=== PATIENT | male | born 1945 | race Caucasian/White ===

== ENCOUNTER 2021-07-04 08:34 | Inpatient (IN) ==
--- NOTE | 2021-07-04 08:44 | DR.EXTPAIN ---
HPI Time seen Time Seen by Provider: 07/04/21 08:45 PCP Primary Care Physician: No local Complaint/Symptoms Chief Complaint Doctor Comments: 75 y/o male brought in via EMS after suffering a fall this am. Pt falls frequently, loses his balance. C/o pain of R shoulder, R ribs. Pt seen here recently for several falls over the past few weeks. Has multiple rib fractures recently. Pt with a h/o dementia, is a poor historian. Cannot describe the pain. Indicates R upper arm, right chest wall. Denies heada injury, neck pain or LOC. Denies recent illness, no fever, cough, N/V, bowel or bladder issues (but again, not a good historian). Brother arrived - he has been caring for the pt over the past several years. Feels he cannot do it anymore. Pt does not live with him, brother checks on him several times a day. States pt not eating, getting weaker. [facility] about [facility]. Gets a home health nurse to visit, about 8 hours per week. Brother feels pt needs to be in a halfway. Has no other family members to help care for the pt. Has had a recent UTI, still on antibiotic. Chief Complaint:: Pt c/o right shoulder pain and right rib pain s/p fall this am. Pt has had multiple falls recently. COVID-19 Coronavirus risk:travel/contact w/high risk person: No Has patient experienced Coronavirus symptoms: No Nurses notes reviewed Nurses Notes Review: Yes Source History Provided: EMS Mode of arrival Mode of Arrival: Stretcher Timing Onset of Chief Complaint: 07/04/21 PMH PMH Past Medical History: Yes Past Medical History: Coronary Artery Disease, CVA, Dementia, Diabetes and MT Past Surgical History: Yes Surgical History: Angioplasty/Stents Family History History of Family Medical Conditions: Yes Family Medical History: Diabetes Mellitus, MT and Hypertension Social History Do you use any recreational Drugs:: No Travel Risk Coronavirus risk:travel/contact w/high risk person: No Has patient experienced Coronavirus symptoms: No Infectious screening In the last 2 months have you had wt loss of >10#?: NO Have you had fever, night sweats or hemotysis?: No Have you traveled outside the country in the last 6 months?: No Isolation: Standard ROS Review of Systems Constitutional: Weakness Eyes: No Symptoms Reported ENTM: No Symptoms Reported Respiratoy: No Symptoms Reported Cardiovascular: Chest Pain Gastrointestinal/Abdominal: No Symptoms Reported Genitourinary: No Symptoms Reported Neurological: Weakness Musculoskeletal: Right, Shoulder and Arm Integumentary: No Symptoms Reported Hematologic/Lymphatic: No Symptoms Reported Psychiatric: No Symptoms Reported All Other Systems: Reviewed and Negative PE Vital Signs Vitals: Temperature 97.9 F Pulse Rate 81 Respiratory Rate 18 Blood Pressure [Left Arm] 118/78 Blood Pressure 157/94 O2 Sat by Pulse Oximetry 96 General Limitations: Altered Mental Status General Appearance: Alert and In No Apparent Distress Head Head Exam: Normal Inspection, Atraumatic and Normocephalic Eyes Eye exam: Normal Appearance, PERRL and EOMI ENT ENT Exam: Normal Exam Neck Neck Exam: Normal Inspection and Full ROM; negative Tenderness Chest Chest Inspection: Tenderness (right side , no crepitus) Respiratory Respiratory Exam: Normal Lung Sounds Bilat; negative Accessory Muscle Use and Respiratory Distress Respiratory Exam: Bilateral: Clear to Auscultation Cardiovascular Cardiovascular Exam: Regular Rate, Normal Rhythm and Normal Heart Sounds Abdominal Exam Abdominal Exam: Normal Inspection, Normal Bowel Sounds and Soft; negative Tenderness Extremities Extremities Exam: Normal Inspection and Tenderness (R upper arm tenderness, no crepitus) Neurological Neurological Exam: Alert and CN II-XII Intact; negative Motor Sensory Deficit Psychiatric Psychiatric Exam: Normal Affect Skin Skin Exam: Warm and Dry MDM Differential Diagnosis Differential Diagnosis: Contusion, Fracture and Other (dehydration, electrolyte abnormalities) COURSE Treatment Treatment: 75 y/o male with dementia, falling frequently. Has not been eating, getting weaker. 1015 - remains stable, in no distress. X-rays unremarkable for acute injuries. Labs overall about the same, except fo an elevated troponin leve l. No report of chest pain. Discussed with covering hospitalist, Dr Contreras. He will accept the pt for admisison, will hydrate the patient, follow his troponin level, and attempt to help with NH placement. ROR Labs Reviewed Laboratory Results Reviewed?: Yes Result Diagrams: 07/04/21 09:17 07/04/21 09:17 Laboratory: WBC 9.4 X10^3/uL (3.6-10.0) 07/04/21 09:17 RBC 4.72 X10^6/uL (4.7-6.0) 07/04/21 09:17 Hgb 13.8 g/dL (13.5-18.0) 07/04/21 09:17 Hct 41.2 % (42.0-54.0) L 07/04/21 09:17 MCV 87.4 fL (80.0-100.0) 07/04/21 09:17 MCH 29.2 pg (27.0-34.0) 07/04/21 09:17 MCHC 33.4 g/dL (33.0-35.0) 07/04/21 09:17 RDW 13.8 % (11.6-16.5) 07/04/21 09:17 Plt Count 289 X10^3/uL (150.0-450.0) 07/04/21 09:17 MPV 9.3 fL (7.4-11.0) 07/04/21 09:17 Neut % (Auto) 73.5 % (42.0-75.0) 07/04/21 09:17 Lymph % (Auto) 14.8 % (21.0-51.0) L 07/04/21 09:17 [place] % (Auto) 10.4 % (0.0-13.0) 07/04/21 09:17 Eos % (Auto) 0.4 % (0.9-2.9) L 07/04/21 09:17 Baso % (Auto) 0.9 % (0.2-1.0) 07/04/21 09:17 Neut # (Auto) 6.9 x10^3/uL (2.2-4.8) H 07/04/21 09:17 Lymph # (Auto) 1.4 X10^3/uL (1.3-2.9) 07/04/21 09:17 [place] # (Auto) 1.0 x10^3/uL (0.3-0.8) H 07/04/21 09:17 Eos # (Auto) 0.0 x10^3/uL (0.0-0.2) 07/04/21 09:17 Baso # (Auto) 0.1 X10^3/uL (0.0-0.1) 07/04/21 09:17 Absolute Nucleated RBC 0.0 /100WBC 07/04/21 09:17 Sodium 139 mmol/L (136-145) 07/04/21 09:17 Corrected Sodium 140 mmol/L (136-145) 07/04/21 09:17 Potassium 4.1 mmol/L (3.5-5.1) 07/04/21 09:17 Chloride 102 mmol/L (98-107) 07/04/21 09:17 Carbon Dioxide 27.3 mmol/L (21-32) 07/04/21 09:17 BUN 31 mg/dL (7-18) H 07/04/21 09:17 Creatinine 1.58 mg/dL (0.70-1.30) H 07/04/21 09:17 Est GFR (MDRD) Af Amer 55 (>60) L 07/04/21 09:17 Est GFR (MDRD) Non-Af 46 (>60) L 07/04/21 09:17 Glucose 140 mg/dL (65-99) H 07/04/21 09:17 Calcium 8.5 mg/dL (8.5-10.1) 07/04/21 09:17 Corrected Calcium 9.4 mg/dL (8.5-10.1) 07/04/21 09:17 Total Bilirubin 1.20 mg/dL (0.2-1.0) H 07/04/21 09:17 AST 20 Units/L (15-37) 07/04/21 09:17 ALT 23 Units/L (12-78) 07/04/21 09:17 Alkaline Phosphatase 144 Units/L (46-116) H 07/04/21 09:17 Creatine Kinase 48 Units/L (39-308) 07/04/21 09:17 CK-MB (CK-2) 2.1 ng/mL (0-4.0) 07/04/21 09:17 CK/CKMB % Calc 4.4 % (<4) 07/04/21 09:17 Troponin I High Sens 186.8 ng/L (4.0-60.0) H* 07/04/21 09:17 Total Protein 6.3 g/dL (6.4-8.2) L 07/04/21 09:17 Albumin 2.9 g/dL (3.4-5.0) L 07/04/21 09:17 Globulin 3.4 g/dL (2.5-4.5) 07/04/21 09:17 Albumin/Globulin Ratio 0.9 Ratio (1.1-2.1) L 07/04/21 09:17 Lipase 81 Units/L (73-393) 07/04/21 09:17 Other Results Comments: elevated troponin Opioid Opioid Risk Tool Age ([place] if 16-45): No History of Preadolescent Sexual Abuse: No Total: 0 Total Score Risk Category: Low Risk Copyright: Cricket CORDOBA predicting aberrant behaviors Diagnosis Discharge Problem: Weakness generalized, Dehydration Failure to thrive Qualifiers: Failure to thrive age range: in adult Qualified Code(s): R62.7 - Adult failure to thrive
[2021-07-04] MEDS ORDERED: NS 500 ML IV 500 ML IV ONE ×2 (09:03→09:44)
--- NOTE | 2021-07-04 09:04 | RAD ---
HISTORYFall, right humerus painSTUDYRight humerus two viewsCOMPARISONNoneFINDINGSThere is no evidence for fracture, lytic, or blastic lesion. No abnormal periosteal reaction or soft tissue abnormality is identified. There is some calcification in the area the biceps tendon groove. This can be seen in calcific tendinitis or calcific bursitis in the appropriate clinical setting.IMPRESSIONNo acute traumatic abnormalityPeritendinous calcification in the area the biceps tendon which can be seen in calcific tendinitis and calcific bursitis in the appropriate clinical settingElectronically signed by: MARKIE ZAFAR (Jul 04, 2021 09:03:15)
--- NOTE | 2021-07-04 09:04 | RAD ---
HISTORYFall, right-sided painSTUDYChest MBOIENQILHOY83/07/2022FINDINGSThe heart is within normal limits in size. The ashley are normal. Lung fritz are clear. No pleural effusion or pneumothorax is identified. Bony thorax is unremarkable.IMPRESSIONNo significant abnormality identifiedElectronically signed by: MARKIE ZAFAR (Jul 04, 2021 09:04:14)
[2021-07-04 09:25] LABS: BASOPHILS # (AUTO) 0.1 X10^3/uL (0.0-0.1); BASOPHILS % (AUTO) 0.9 % (0.2-1.0); EOSINOPHILS % (AUTO) 0.4 % (0.9-2.9); HEMATOCRIT 41.2 % (42.0-54.0); HEMOGLOBIN 13.8 g/dL (13.5-18.0); LYMPHOCYTES # (AUTO) 1.4 X10^3/uL (1.3-2.9); LYMPHOCYTES % (AUTO) 14.8 % (21.0-51.0); MEAN CORPUSCULAR HEMOGLOBIN 29.2 pg (27.0-34.0); MEAN CORPUSCULAR HGB CONC 33.4 g/dL (33.0-35.0); MEAN CORPUSCULAR VOLUME 87.4 fL (80.0-100.0); MEAN PLATELET VOLUME 9.3 fL (7.4-11.0); MONOCYTES % (AUTO) 10.4 % (0.0-13.0); NEUTROPHILS # (AUTO) 6.9 x10^3/uL (2.2-4.8); NEUTROPHILS % (AUTO) 73.5 % (42.0-75.0); RED BLOOD COUNT 4.72 X10^6/uL (4.7-6.0); RED CELL DISTRIBUTION WIDTH 13.8 % (11.6-16.5); WHITE BLOOD COUNT 9.4 X10^3/uL (3.6-10.0)
[2021-07-04 09:51] LABS: ALBUMIN 2.9 g/dL (3.4-5.0); CALCIUM 8.5 mg/dL (8.5-10.1); CARBON DIOXIDE 27.3 mmol/L (21-32); CKMB % 4.4 % (<4); COR CA(FOR HYPOALB) 9.4 mg/dL (8.5-10.1); CREATINE KINASE MB 2.1 ng/mL (0-4.0); CREATININE 1.58 mg/dL (0.70-1.30); TOTAL PROTEIN 6.3 g/dL (6.4-8.2)
[2021-07-04 13:35] LABS: CKMB % 4.4 % (<4); CREATINE KINASE MB 2.3 ng/mL (0-4.0)
[2021-07-04] MEDS: NS 1,000 ML IV 1,000 ML IV SCH (14:17)
[2021-07-04 19:21] LABS: CKMB % 5.5 % (<4); CREATINE KINASE MB 2.3 ng/mL (0-4.0)
[2021-07-05] MEDS: NS 1,000 ML IV 1,000 ML IV SCH ×2 (02:00→16:16)
[2021-07-05 02:03] LABS: CKMB % 8.1 % (<4); CREATINE KINASE MB 2.6 ng/mL (0-4.0)
[2021-07-05 06:25] LABS: BASOPHILS % (AUTO) 0.6 % (0.2-1.0); EOSINOPHILS % (AUTO) 0.4 % (0.9-2.9); HEMATOCRIT 36.5 % (42.0-54.0); HEMOGLOBIN 12.4 g/dL (13.5-18.0); LYMPHOCYTES # (AUTO) 1.6 X10^3/uL (1.3-2.9); LYMPHOCYTES % (AUTO) 21.6 % (21.0-51.0); MEAN CORPUSCULAR HEMOGLOBIN 29.5 pg (27.0-34.0); MEAN CORPUSCULAR HGB CONC 33.8 g/dL (33.0-35.0); MEAN CORPUSCULAR VOLUME 87.2 fL (80.0-100.0); MEAN PLATELET VOLUME 10.3 fL (7.4-11.0); MONOCYTES # (AUTO) 0.8 x10^3/uL (0.3-0.8); MONOCYTES % (AUTO) 11.5 % (0.0-13.0); NEUTROPHILS # (AUTO) 4.7 x10^3/uL (2.2-4.8); NEUTROPHILS % (AUTO) 65.9 % (42.0-75.0); RED BLOOD COUNT 4.19 X10^6/uL (4.7-6.0); RED CELL DISTRIBUTION WIDTH 14.3 % (11.6-16.5); WHITE BLOOD COUNT 7.2 X10^3/uL (3.6-10.0)
[2021-07-05 06:42] LABS: ALANINE AMINOTRANSFERASE 26 Units/L (12-78); ALBUMIN 2.4 g/dL (3.4-5.0); ALKALINE PHOSPHATASE 128 Units/L (46-116); ASPARTATE AMINO TRANSFERASE 20 Units/L (15-37); BLOOD UREA NITROGEN 26 mg/dL (7-18); CALCIUM 7.6 mg/dL (8.5-10.1); CARBON DIOXIDE 27.1 mmol/L (21-32); CHLORIDE 103 mmol/L (98-107); COR CA(FOR HYPOALB) 8.9 mg/dL (8.5-10.1); COR NA(FOR HYPERGLY) 135 mmol/L (136-145); CREATININE 1.11 mg/dL (0.70-1.30); SODIUM 135 mmol/L (136-145); TOTAL PROTEIN 5.4 g/dL (6.4-8.2); eGFR NON BLACK RACES > 60 (>60)
[2021-07-05] MEDS ORDERED: NovoLIN R (or HumuLIN R) SUBCUT PRN (09:43)
[2021-07-05] MEDS ORDERED: ALBUMIN HUMAN 25%- 100 ML 100 ML IV SCH (10:00)
[2021-07-05] MEDS: PriLOSEC PO SCH ×2 (10:02→20:39)
[2021-07-05] MEDS: MEGACE PO SCH ×2 (10:02→20:39)
[2021-07-05] MEDS: TAB-A-VITE PO SCH (10:03)
[2021-07-05] MEDS: K-DUR TAB 20 MEQ PO SCH (10:03)
[2021-07-05] MEDS: CELEXA PO SCH (10:03)
[2021-07-05] MEDS: NAMENDA TAB 10 MG PO SCH (10:03)
--- NOTE | 2021-07-05 10:17 | DR.H&P ---
H&P - History & Physical for Day of: H&P Date: 07/04/21 - Chief Complaint Chief Complaint: FALLS, RIGHT SHOULDER, ARM, AND RIB PAIN, WEAKNESS, DECREASED ORAL INTAKE - History of Present Illness History of Present Illness: IS A 75 YEAR OLD WHITE MALE. HE IS A PATIENT OF THE [place] [facility]. HE PRESENTED TO THE ER VIA EMS FOLLOWING A FALL AT HOME. PATIENT COMPLAINS OF PAIN TO THE RIGHT SHOULDER, RIGHT ARM, AND RIGHT SIDE RIBS. PATIENT HAS HAD RECENT RIB FRACTURES. PATIENT HAS A HISTORY OF DEMENTIA AND IS A POOR HISTORIAN. PATIENTS BROTHER REPORTS THAT PATIENT LIVES AT HOME ALONE IN A SMALL [place] AND HAS HAD SEVERAL FALLS OVER THE PAST FEW WEEKS. PATIENT/FAMILY DENIES RECENT ILLNESS, FEVER, COUGH, N/V, BOWEL/BLADDER ISSUES. HE HAS HAD DECREASED ORAL INTAKE. PATIENTS BROTHER REPORTS THAT HE CHECKS ON PATIENT MULTIPLE TIMES A DAY, BUT DUE TO PATIENTS INCREASED WEAKNESS AND FALLS, BROTHER FEELS THAT PATIENT IS UNSAFE AT HOME AND FEELS THAT IT IS TIME FOR SNF PLACEMENT. PATIENT HAS NO OTHER FAMILY MEMBERS TO HELP CARE FOR HIM. HIS PMH INCLUDES CAD, CVA, DEMENTIA, DM II, ME, CARDIAC STENTS. ON ARRIVAL TO THE ER, VITALS WERE 97.9-81-20-99%-157/94. LABS WERE OBTAINED. WBC 9.4, HGB 13.8, HCT 41.2, SODIUM 139, POTASSIUM 4.1, BUN 31, CREATININE 1.58, GLUCOSE 140, TOTAL BILI 1.20, ALK PHOS 144, TROPONIN 186.8, TOTAL PROTEIN 6.3, ALBUMIN 2.9. A CHEST XRAY WAS OBTAINED AND REVEALED: NO SIGNIFICANT ABNORMALITY IDENTIFIED. RIGHT HUMERUS XRAY REVEALED: No acute traumatic abnormality. Peritendinous calcification in the area the biceps tendon which can be seen in calcific tendinitis and calcific bursitis in the appropriate clinical setting. EKG REVEALED: SINUS RHYTHM WITH HR 82. CHEST CT OBTAINED ON 06/13/21 REVEALED: 1. Acute or subacute ununited nondisplaced fractures of the right lateral second rib, right posterior fifth rib and right anterior lateral seventh eighth, ninth, and 10th ribs. 2. 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 3. Diffuse osteopenia. 4. Otherwise unremarkable chest CT without contrast. IN THE ER, HE WAS GIVEN A NORMAL SALINE BOLUS. HE WAS ADMITTED TO THE HOSPITAL FOR FURTHER EVALUATION AND TREATMENT OF DEHYDRATION, PROTEIN- CALORIE MALNUTRITION, GENERALIZED WEAKNESS, FREQUENT FALLS, FAILURE TO THRIVE. HE WAS STARTED ON NORMAL SALINE AT 80 ML/HR, ALBUMIN 25% IV DAILY, MEGACE 40MG PO BID, OTBS ACHS, HUMULIN R SSI. HIS HOME MEDICATIONS OF CELEXA, PLAVIX, ARICEPT, NAMENDA, MULTIVITAMINS, PRILOSEC, AND K-DUR WERE ALSO RESUMED. WE WILL HAVE PHYSICAL THERAPY EVALUATE PATIENT. OTHERWISE, WE PLAN TO FOLLOW UP WITH AM LABS AND CONTINUE TO MONITOR. TIME SPENT ON CLINICAL ASSESSMENT, REVIEWING LABS AND IMAGING, DECISION MAKING, AND DOCUMENTATION GREATER THAN 75 MINUTES. - Past Medical History Past Medical History: ME, Coronary Artery Disease, Diabetes, Dementia, CVA - Past Surgical History Surgical History: Angioplasty/Stents - Family History Family Medical History: Diabetes Mellitus, ME, Hypertension - Social History Does any household member use tobacco: No Alcohol Use: None Drug Use: None - Medications Home Medications: No Known Drug Allergies Allergy (Verified 07/04/21 09:06) CONTINUE taking the following medications citalopram 20 mg PO ONCE 07/04/21 [History] clopidogrel [Plavix] 75 mg PO ONCE 07/04/21 [History] cyanocobalamin (vitamin B-12) [Vitamin B-12] 1,000 mcg PO ONCE 07/04/21 [History] donepezil 10 mg PO QHS 07/04/21 [History] doxycycline hyclate 100 mg PO BID 07/04/21 [History] memantine 5 mg PO QAM 07/04/21 [History] metformin 500 mg PO DAILY 07/04/21 [History] omeprazole 20 mg PO BID 07/04/21 [History] potassium chloride 20 meq PO DAILY 07/04/21 [History] vitamin B comp and C no.3 1 cap PO ONCE 07/04/21 [History] - Review of Systems Constitutional: Weakness, Malaise Eyes: No Symptoms Reported ENT: No Symptoms Reported Respiratory: No Symptoms Reported Cardiovascular: No Symptoms Reported Gastrointestinal: No Symptoms Reported Genitourinary: No Symptoms Reported Musculoskeletal: See HPI, Shoulder Pain, Arm Pain Skin: Bruising Neurological: See HPI, Weakness, Confusion - Physical Exam Vital Signs: Temperature 98.2 F Pulse Rate [Left Radial] 77 Pulse Rate 81 Respiratory Rate 18 Blood Pressure [Left Arm] 131/90 Blood Pressure 157/94 O2 Sat by Pulse Oximetry 98 Oriented: Person, Place Eyes: Normal Ear: Normal Nose: Normal Throat: Normal Respiratory: Diminished Throughout Cardiovascular: Normal : Normal Auscultation: Bowel Sounds: Normal Palpation: Normal Tenderness: Normal Skin: Decreased Turgur, Bruising Musculoskeletal: Right, Shoulder, Arm, Tender Psychiatric: Normal Mood Description: Calm Affect: Normal Speech Pattern: Clear - Assessment/Plan (1) Dehydration Status: Acute Plan: ADMIT, NORMAL SALINE AT 80 ML/HR, ALBUMIN 25% IV DAILY, MEGACE 40MG PO BID, OTBS ACHS, HUMULIN R SSI. RESUME HOME MEDS (2) Protein calorie malnutrition Qualifiers: Protein-calorie malnutrition severity: moderate Qualified Code(s): E44.0 - Moderate protein-calorie malnutrition Status: Acute (3) Weakness generalized Status: Acute (4) Frequent falls Status: Acute Plan: PT/OT (5) Failure to thrive Qualifiers: Failure to thrive age range: in adult Qualified Code(s): R62.7 - Adult failure to thrive Status: Acute (6) Diabetes mellitus Qualifiers: Diabetes mellitus type: type 2 Diabetes mellitus intermediate insulin use: with intermediate use Diabetes mellitus complication status: with hyperglycemia Qualified Code(s): E11.65 - Type 2 diabetes mellitus with hyperglycemia; Z79.4 - residential (current) use of insulin Status: Chronic (7) CAD (coronary artery disease) Qualifiers: Coronary Disease-Associated Artery/Lesion type: [place] artery [place] vs. transplanted heart: [place] heart Associated angina: unspecified whether angina present Qualified Code(s): I25.10 - Atherosclerotic heart disease of [place] coronary artery without angina pectoris Status: Chronic - Allergies Allergies/Adverse Reactions: Allergies Allergy/AdvReac Type Severity Reaction Status Date / Time No Known Drug Allergies Allergy Verified 07/04/21 09:06
[2021-07-05] MEDS: PLAVIX PO SCH (10:40)
[2021-07-05] MEDS ORDERED: ULTRAM PO PRN (11:52)
[2021-07-05] MEDS: MILK OF MAGNESIA PO SCH ×2 (13:39→20:38)
[2021-07-05 14:11] VITALS: BMI 23.5
[2021-07-05] MEDS: ARICEPT TAB 10 MG PO SCH (20:38)
[2021-07-05] MEDS: SNACK - Diabetic Appropriate PO SCH (20:39)
[2021-07-05] MEDS: COLACE CAP 100 MG PO SCH (20:39)
[2021-07-06] MEDS: NS 1,000 ML IV 1,000 ML IV SCH ×2 (04:30→16:53)
[2021-07-06 05:34] LABS: BASOPHILS # (AUTO) 0.1 X10^3/uL (0.0-0.1); BASOPHILS % (AUTO) 1.4 % (0.2-1.0); EOSINOPHILS # (AUTO) 0.1 x10^3/uL (0.0-0.2); HEMATOCRIT 32.6 % (42.0-54.0); HEMOGLOBIN 11.2 g/dL (13.5-18.0); LYMPHOCYTES # (AUTO) 1.8 X10^3/uL (1.3-2.9); LYMPHOCYTES % (AUTO) 19.7 % (21.0-51.0); MEAN CORPUSCULAR HGB CONC 34.3 g/dL (33.0-35.0); MEAN CORPUSCULAR VOLUME 87.5 fL (80.0-100.0); MEAN PLATELET VOLUME 9.5 fL (7.4-11.0); MONOCYTES % (AUTO) 11.1 % (0.0-13.0); NEUTROPHILS # (AUTO) 6.2 x10^3/uL (2.2-4.8); NEUTROPHILS % (AUTO) 66.8 % (42.0-75.0); RED BLOOD COUNT 3.73 X10^6/uL (4.7-6.0); RED CELL DISTRIBUTION WIDTH 14.1 % (11.6-16.5); WHITE BLOOD COUNT 9.3 X10^3/uL (3.6-10.0)
[2021-07-06 05:45] LABS: ALANINE AMINOTRANSFERASE 19 Units/L (12-78); ALBUMIN 2.5 g/dL (3.4-5.0); ALKALINE PHOSPHATASE 111 Units/L (46-116); ASPARTATE AMINO TRANSFERASE 15 Units/L (15-37); BLOOD UREA NITROGEN 18 mg/dL (7-18); CALCIUM 7.5 mg/dL (8.5-10.1); CARBON DIOXIDE 27.5 mmol/L (21-32); CHLORIDE 106 mmol/L (98-107); COR CA(FOR HYPOALB) 8.7 mg/dL (8.5-10.1); CREATININE 0.97 mg/dL (0.70-1.30); SODIUM 138 mmol/L (136-145); TOTAL PROTEIN 4.9 g/dL (6.4-8.2); eGFR NON BLACK RACES > 60 (>60)
[2021-07-06] MEDS ORDERED: CLINIMIX 4.25%-5% 1,000 ML with MVI INJ (ADULT) 10 ML IV SCH ×2 (09:00)
[2021-07-06] MEDS: K-DUR TAB 20 MEQ PO SCH (09:46)
[2021-07-06] MEDS: TAB-A-VITE PO SCH (09:47)
[2021-07-06] MEDS: MEGACE PO SCH ×2 (09:47→21:09)
[2021-07-06] MEDS: PLAVIX PO SCH (09:47)
[2021-07-06] MEDS: MILK OF MAGNESIA PO SCH ×2 (09:48→21:09)
[2021-07-06] MEDS: PriLOSEC PO SCH ×2 (09:48→21:08)
[2021-07-06] MEDS: NAMENDA TAB 10 MG PO SCH (09:48)
[2021-07-06] MEDS: CELEXA PO SCH (09:48)
[2021-07-06] MEDS ORDERED: MVI IV SCH ×2 (10:00)
[2021-07-06] MEDS ORDERED: CLINIMIX IV SCH ×2 (10:00)
--- NOTE | 2021-07-06 10:13 | PCM.PROG ---
Progress Note - Progress Note for Day of Date of Exam: 07/06/21 - Subjective Subjective: WAS ADMITTED 07/04 FOR TREATMENT OF DEHYDRATION, PROTEIN CALORIE MALNUTRITION, GENERALIZED WEAKNESS, FREQUENT FALLS, FAILURE TO THRIVE. HE CONTINUES WITH RIGHT SHOULDER PAIN AND RIGHT SIDE RIB PAIN, BUT DOES ADMIT TO SLIGHT IMPROVEMENT SINCE YESTERDAY. TODAY, HE IS ALERT AND ORIENTED, SITTING UP IN BED ON MORNING ROUNDS. PATIENT IS EATING OFF OF HIS BREAKFAST TRAY. HE CONTINUES WITH COMPLAINTS OF WEAKNESS. STAFF REPORTS THAT HE HAS BEEN CONFUSED AND DISORIENTED AT TIMES, BUT HAS HAD A PLEASANT DEMEANOR. THEY REPORT THAT HE HAS AN UNSTEADY GAIT AND REQUIRES ASSISTANCE WITH AMBULATION AND ADLs. ON EXAMINATION, HEART IS REGULAR IN RATE AND RHYTHM. BILATERAL LUNGS NOTED WITH DIMINISHED LUNG SOUNDS THROUGHOUT. ABDOMEN IS ROUND, SOFT, AND NON-TENDER WITH NORMAL BOWEL SOUNDS NOTED IN ALL QUADRANTS. SCATTERED BRUISING NOTED. HS VITALS THIS MORNING ARE: 98.4-75-18-98%-136/84. LABS WERE OBTAINED. ABNORMAL LAB VALUES INCLUDE THE FOLLOWING: RBC 3.73, HGB 11.2, HCT 32.6, CALCIUM 7.5, TOTAL PROTEIN 4.9, ALBUMIN 2.5. HE IS CURRENTLY RECEIVING NORMAL SALINE AT 80 ML/HR, ALBUMIN 25% IV DAILY, MEGACE 40MG PO BID, OTBS ACHS, HUMULIN R SSI. HIS HOME MEDICATIONS OF CELEXA, PLAVIX, ARICEPT, NAMENDA, MULTIVITAMINS, PRILOSEC, AND K-DUR WERE ALSO RESUMED. TODAY, WE WILL ADD TPN TO PLAN OF CARE. OTHERWISE, WE WILL FOLLOW UP WITH AM LABS AND CONTINUE TO MONITOR. PHYSICAL THERAPY WILL CONTINUE TO WORK WITH PATIENT. CASE MANAGEMENT WILL ATTEMPT TO ARRANGE PLACEMENT AT NURSING HOME CARE. TIME SPENT ON CLINICAL ASSESSMENT, REVIEWING LABS AND IMAGING, DECISION MAKING, AND DOCUMENTATION GREATER THAN 45 MINUTES. - Past Medical Family Social History Past Med/Fam/Surg Hx: No changes since H&P Allergies: Allergies No Known Drug Allergies Allergy (Verified 07/04/21 09:06) - Review of Systems ROS: No change since H&P - Vital Signs and I&O's Vital Signs: Temperature 98.4 F Pulse Rate [Left Radial] 75 Pulse Rate 81 Respiratory Rate 18 Blood Pressure [Left Arm] 136/84 Blood Pressure 157/94 O2 Sat by Pulse Oximetry 98 Intake and Output: Intake & Output 02/14/22 02/15/22 02/16/22 02/17/22 11:59 11:59 11:59 11:59 Intake Total 1562 / 1562 1280 / 1280 Output Total 800 / 800 Balance 762 / 762 1280 / 1280 - Physical Exam Oriented: Person, Place Eyes: Normal Ear: Normal Nose: Normal Throat: Normal Respiratory: Diminished Cardiovascular: Normal : Normal Auscultation: Bowel Sounds: Normal Palpation: Normal Tenderness: Normal Skin: Decreased Turgur, Bruising Musculoskeletal: Right, Shoulder, Arm, Tender Psychiatric: Normal Mood Description: Calm Affect: Normal Speech Pattern: Clear - Laboratory and Diagnostics Result Diagrams: 07/06/21 05:23 07/06/21 05:23 Labs: Laboratory WBC 9.3 X10^3/uL (3.6-10.0) 07/06/21 05:23 RBC 3.73 X10^6/uL (4.7-6.0) L 07/06/21 05:23 Hgb 11.2 g/dL (13.5-18.0) L 07/06/21 05:23 Hct 32.6 % (42.0-54.0) L 07/06/21 05:23 MCV 87.5 fL (80.0-100.0) 07/06/21 05:23 MCH 30.0 pg (27.0-34.0) 07/06/21 05:23 MCHC 34.3 g/dL (33.0-35.0) 07/06/21 05:23 RDW 14.1 % (11.6-16.5) 07/06/21 05:23 Plt Count 211 X10^3/uL (150.0-450.0) 07/06/21 05:23 MPV 9.5 fL (7.4-11.0) 07/06/21 05:23 Neut % (Auto) 66.8 % (42.0-75.0) 07/06/21 05:23 Lymph % (Auto) 19.7 % (21.0-51.0) L 07/06/21 05:23 [place] % (Auto) 11.1 % (0.0-13.0) 07/06/21 05:23 Eos % (Auto) 1.0 % (0.9-2.9) 07/06/21 05:23 Baso % (Auto) 1.4 % (0.2-1.0) H 07/06/21 05:23 Neut # (Auto) 6.2 x10^3/uL (2.2-4.8) H 07/06/21 05:23 Lymph # (Auto) 1.8 X10^3/uL (1.3-2.9) 07/06/21 05:23 [place] # (Auto) 1.0 x10^3/uL (0.3-0.8) H 07/06/21 05:23 Eos # (Auto) 0.1 x10^3/uL (0.0-0.2) 07/06/21 05:23 Baso # (Auto) 0.1 X10^3/uL (0.0-0.1) 07/06/21 05:23 Absolute Nucleated RBC 0.0 /100WBC 07/06/21 05:23 Sodium 138 mmol/L (136-145) 07/06/21 05:23 Corrected Sodium TNP 07/06/21 05:23 Potassium 4.0 mmol/L (3.5-5.1) 07/06/21 05:23 Chloride 106 mmol/L (98-107) 07/06/21 05:23 Carbon Dioxide 27.5 mmol/L (21-32) 07/06/21 05:23 BUN 18 mg/dL (7-18) 07/06/21 05:23 Creatinine 0.97 mg/dL (0.70-1.30) 07/06/21 05:23 Est GFR (MDRD) Af Amer > 60 (>60) 07/06/21 05:23 Est GFR (MDRD) Non-Af > 60 (>60) 07/06/21 05:23 Glucose 97 mg/dL (65-99) 07/06/21 05:23 POC Glucose (mg/dL) 97 mg/dL (65-99) 07/06/21 05:32 Calcium 7.5 mg/dL (8.5-10.1) L 07/06/21 05:23 Corrected Calcium 8.7 mg/dL (8.5-10.1) 07/06/21 05:23 Total Bilirubin 0.70 mg/dL (0.2-1.0) 07/06/21 05:23 AST 15 Units/L (15-37) 07/06/21 05:23 ALT 19 Units/L (12-78) 07/06/21 05:23 Alkaline Phosphatase 111 Units/L (46-116) 07/06/21 05:23 Creatine Kinase 32 Units/L (39-308) L 07/05/21 01:25 CK-MB (CK-2) 2.6 ng/mL (0-4.0) 07/05/21 01:25 CK/CKMB % Calc 8.1 % (<4) 07/05/21 01:25 Troponin I High Sens 144.1 ng/L (4.0-60.0) H* 07/05/21 01:25 Total Protein 4.9 g/dL (6.4-8.2) L 07/06/21 05:23 Albumin 2.5 g/dL (3.4-5.0) L 07/06/21 05:23 Globulin 2.4 g/dL (2.5-4.5) L 07/06/21 05:23 Albumin/Globulin Ratio 1.0 Ratio (1.1-2.1) L 07/06/21 05:23 Lipase 81 Units/L (73-393) 07/04/21 09:17 SARS-CoV-2 (PCR) Negative (NEGATIVE) 07/04/21 09:36 Influenza Type A (PCR) Negative (NEGATIVE) 07/04/21 09:36 Influenza Type B (PCR) Negative (NEGATIVE) 07/04/21 09:36 RSV (PCR) Negative (NEGATIVE) 07/04/21 09:36 - Plan (1) Dehydration Status: Acute Plan: NORMAL SALINE AT 80 ML/HR, TPN, ALBUMIN 25% IV DAILY, MEGACE 40MG PO BID, OTBS ACHS, HUMULIN R SSI. RESUME HOME MEDS (2) Protein calorie malnutrition Status: Acute Qualifiers: Protein-calorie malnutrition severity: moderate Qualified Code(s): E44.0 - Moderate protein-calorie malnutrition (3) Weakness generalized Status: Acute (4) Frequent falls Status: Acute Plan: PT/OT (5) Failure to thrive Status: Acute Qualifiers: Failure to thrive age range: in adult Qualified Code(s): R62.7 - Adult failure to thrive (6) Diabetes mellitus Status: Chronic Qualifiers: Diabetes mellitus type: type 2 Diabetes mellitus long distance billing operator insulin use: with long distance billing operator use Diabetes mellitus complication status: with hyperglycemia Qualified Code(s): E11.65 - Type 2 diabetes mellitus with hyperglycemia; Z79.4 - extermination inspector (current) use of insulin (7) CAD (coronary artery disease) Status: Chronic Qualifiers: Coronary Disease-Associated Artery/Lesion type: [place] artery [place] vs. transplanted heart: [place] heart Associated angina: unspecified whether angina present Qualified Code(s): I25.10 - Atherosclerotic heart disease of [place] coronary artery without angina pectoris
--- NOTE | 2021-07-06 10:17 | PCM.PROG ---
Progress Note - Progress Note for Day of Date of Exam: 07/05/21 - Subjective Subjective: WAS ADMITTED 07/04 FOR TREATMENT OF DEHYDRATION, PROTEIN CALORIE MALNUTRITION, GENERALIZED WEAKNESS, FREQUENT FALLS, FAILURE TO THRIVE. HE CONTINUES WITH RIGHT SHOULDER PAIN AND RIGHT SIDE RIB PAIN TODAY. HE IS ALERT AND ORIENTED, SITTING UP IN BED ON MORNING ROUNDS. HE CONTINUES WITH COMPLAINTS OF WEAKNESS. STAFF REPORTS THAT HE HAS BEEN CONFUSED AND DISORIENTED AT TIMES, BUT HAS HAD A PLEASANT DEMEANOR. THEY REPORT THAT HE HAS AN UNSTEADY GAIT AND REQUIRES ASSISTANCE WITH AMBULATION AND ADLs. ON EXAMINATION, HEART IS REGULAR IN RATE AND RHYTHM. BILATERAL LUNGS NOTED WITH DIMINISHED LUNG SOUNDS THROUGHOUT. ABDOMEN IS ROUND, SOFT, AND NON-TENDER WITH NORMAL BOWEL SOUNDS NOTED IN ALL QUADRANTS. SCATTERED BRUISING NOTED. HS VITALS THIS MORNING ARE: 97.7-76-16-97%-135/87. LABS WERE OBTAINED. ABNORMAL LAB VALUES INCLUDE THE FOLLOWING: RBC 4.19, HGB 12.4, HCT 36.5, SODIUM 135, BUN 26, GLUCOSE 113, CALCIUM 7.6, ALK PHOS 128, TOTAL PROTEIN 5.4, ALBUMIN 2.4. HE IS CURRENTLY RECEI VING NORMAL SALINE AT 80 ML/HR, ALBUMIN 25% IV DAILY, MEGACE 40MG PO BID, OTBS ACHS, HUMULIN R SSI. HIS HOME MEDICATIONS OF CELEXA, PLAVIX, ARICEPT, NAMENDA, MULTIVITAMINS, PRILOSEC, AND K-DUR WERE ALSO RESUMED. WE WILL CONTINUE WITH CURRENT PLAN OF CARE TODAY. OTHERWISE, WE WILL FOLLOW UP WITH AM LABS AND CONTINUE TO MONITOR. PHYSICAL THERAPY WILL WORK WITH PATIENT TODAY. TIME SPENT ON CLINICAL ASSESSMENT, REVIEWING LABS AND IMAGING, DECISION MAKING, AND DOCUMENTATION GREATER THAN 45 MINUTES. - Past Medical Family Social History Past Med/Fam/Surg Hx: No changes since H&P Allergies: Allergies No Known Drug Allergies Allergy (Verified 07/04/21 09:06) - Review of Systems ROS: No change since H&P - Vital Signs and I&O's Vital Signs: Temperature 98.4 F Pulse Rate [Left Radial] 75 Pulse Rate 81 Respiratory Rate 18 Blood Pressure [Left Arm] 136/84 Blood Pressure 157/94 O2 Sat by Pulse Oximetry 98 Intake and Output: Intake & Output 07/03/21 07/04/21 07/05/21 07/06/21 11:59 11:59 11:59 11:59 Intake Total 1562 / 1562 1280 / 1280 Output Total 800 / 800 Balance 762 / 762 1280 / 1280 - Physical Exam Oriented: Person, Place Eyes: Normal Ear: Normal Nose: Normal Throat: Normal Respiratory: Diminished Cardiovascular: Normal : Normal Auscultation: Bowel Sounds: Normal Palpation: Normal Tenderness: Normal Skin: Decreased [place], Bruising Musculoskeletal: Right, Shoulder, Arm, Tender Psychiatric: Normal Mood Description: Calm Affect: Normal Speech Pattern: Clear - Laboratory and Diagnostics Result Diagrams: 07/06/21 05:23 07/06/21 05:23 Labs: Laboratory WBC 9.3 X10^3/uL (3.6-10.0) 07/06/21 05:23 RBC 3.73 X10^6/uL (4.7-6.0) L 07/06/21 05:23 Hgb 11.2 g/dL (13.5-18.0) L 07/06/21 05:23 Hct 32.6 % (42.0-54.0) L 07/06/21 05:23 MCV 87.5 fL (80.0-100.0) 07/06/21 05:23 MCH 30.0 pg (27.0-34.0) 07/06/21 05:23 MCHC 34.3 g/dL (33.0-35.0) 07/06/21 05:23 RDW 14.1 % (11.6-16.5) 07/06/21 05:23 Plt Count 211 X10^3/uL (150.0-450.0) 07/06/21 05:23 MPV 9.5 fL (7.4-11.0) 07/06/21 05:23 Neut % (Auto) 66.8 % (42.0-75.0) 07/06/21 05:23 Lymph % (Auto) 19.7 % (21.0-51.0) L 07/06/21 05:23 [place] % (Auto) 11.1 % (0.0-13.0) 07/06/21 05:23 Eos % (Auto) 1.0 % (0.9-2.9) 07/06/21 05:23 Baso % (Auto) 1.4 % (0.2-1.0) H 07/06/21 05:23 Neut # (Auto) 6.2 x10^3/uL (2.2-4.8) H 07/06/21 05:23 Lymph # (Auto) 1.8 X10^3/uL (1.3-2.9) 07/06/21 05:23 [place] # (Auto) 1.0 x10^3/uL (0.3-0.8) H 07/06/21 05:23 Eos # (Auto) 0.1 x10^3/uL (0.0-0.2) 07/06/21 05:23 Baso # (Auto) 0.1 X10^3/uL (0.0-0.1) 07/06/21 05:23 Absolute Nucleated RBC 0.0 /100WBC 07/06/21 05:23 Sodium 138 mmol/L (136-145) 07/06/21 05:23 Corrected Sodium TNP 07/06/21 05:23 Potassium 4.0 mmol/L (3.5-5.1) 07/06/21 05:23 Chloride 106 mmol/L (98-107) 07/06/21 05:23 Carbon Dioxide 27.5 mmol/L (21-32) 07/06/21 05:23 BUN 18 mg/dL (7-18) 07/06/21 05:23 Creatinine 0.97 mg/dL (0.70-1.30) 07/06/21 05:23 Est GFR (MDRD) Af Amer > 60 (>60) 07/06/21 05:23 Est GFR (MDRD) Non-Af > 60 (>60) 07/06/21 05:23 Glucose 97 mg/dL (65-99) 07/06/21 05:23 POC Glucose (mg/dL) 97 mg/dL (65-99) 07/06/21 05:32 Calcium 7.5 mg/dL (8.5-10.1) L 07/06/21 05:23 Corrected Calcium 8.7 mg/dL (8.5-10.1) 07/06/21 05:23 Total Bilirubin 0.70 mg/dL (0.2-1.0) 07/06/21 05:23 AST 15 Units/L (15-37) 07/06/21 05:23 ALT 19 Units/L (12-78) 07/06/21 05:23 Alkaline Phosphatase 111 Units/L (46-116) 07/06/21 05:23 Creatine Kinase 32 Units/L (39-308) L 07/05/21 01:25 CK-MB (CK-2) 2.6 ng/mL (0-4.0) 07/05/21 01:25 CK/CKMB % Calc 8.1 % (<4) 07/05/21 01:25 Troponin I High Sens 144.1 ng/L (4.0-60.0) H* 07/05/21 01:25 Total Protein 4.9 g/dL (6.4-8.2) L 07/06/21 05:23 Albumin 2.5 g/dL (3.4-5.0) L 07/06/21 05:23 Globulin 2.4 g/dL (2.5-4.5) L 07/06/21 05:23 Albumin/Globulin Ratio 1.0 Ratio (1.1-2.1) L 07/06/21 05:23 Lipase 81 Units/L (73-393) 07/04/21 09:17 SARS-CoV-2 (PCR) Negative (NEGATIVE) 07/04/21 09:36 Influenza Type A (PCR) Negative (NEGATIVE) 07/04/21 09:36 Influenza Type B (PCR) Negative (NEGATIVE) 07/04/21 09:36 RSV (PCR) Negative (NEGATIVE) 07/04/21 09:36 - Plan (1) Dehydration Status: Acute Plan: NORMAL SALINE AT 80 ML/HR, ALBUMIN 25% IV DAILY, MEGACE 40MG PO BID, OTBS ACHS, HUMULIN R SSI. RESUME HOME MEDS (2) Protein calorie malnutrition Status: Acute Qualifiers: Protein-calorie malnutrition severity: moderate Qualified Code(s): E44.0 - Moderate protein-calorie malnutrition (3) Hypoalbuminemia due to protein-calorie malnutrition Status: Acute (4) Weakness generalized Status: Acute (5) Frequent falls Status: Acute Plan: PT/OT (6) Failure to thrive Status: Acute Qualifiers: Failure to thrive age range: in adult Qualified Code(s): R62.7 - Adult failure to thrive (7) Diabetes mellitus Status: Chronic Qualifiers: Diabetes mellitus type: type 2 Diabetes mellitus retirement insulin use: with sales planning coordinator use Diabetes mellitus complication status: with hyperglycemia Qualified Code(s): E11.65 - Type 2 diabetes mellitus with hyperglycemia; Z79.4 - [facility] (current) use of insulin (8) CAD (coronary artery disease) Status: Chronic Qualifiers: Coronary Disease-Associated Artery/Lesion type: [place] artery [place] vs. transplanted heart: [place] heart Associated angina: unspecified whether angina present Qualified Code(s): I25.10 - Atherosclerotic heart disease of [place] coronary artery without angina pectoris
[2021-07-06] MEDS ORDERED: DRUG FILTER EXTENSION SET ONE (11:00)
[2021-07-06] MEDS: MIRALAX POWDER (1 DOSE 17 G) PO SCH (11:00)
[2021-07-06] MEDS ORDERED: DULCOLAX SUPPOSITORY 10 MG RECTAL ONE (14:55)
[2021-07-06] MEDS ORDERED: NS 1,000 ML IV 1,000 ML ONE (16:50)
[2021-07-06 17:06] LABS: BILIRUBIN,URINE NEGATIVE (NEGATIVE); BLOOD/HEMOGLOBIN,URINE NEGATIVE (NEGATIVE); GLUCOSE, URINE 4+ (NEGATIVE); KETONES,URINE NEGATIVE (NEGATIVE); LEUKOCYTE ESTERASE ,URINE NEGATIVE (NEGATIVE); NITRITES,URINE NEGATIVE (NEGATIVE); PROTEIN,URINE NEGATIVE (NEGATIVE); UROBILINOGEN,URINE NORMAL (NORMAL)
[2021-07-06 17:15] LABS: APPEARANCE,URINE CLEAR (CLEAR); COLOR,URINE YELLOW (YELLOW)
[2021-07-06] MEDS: SNACK - Diabetic Appropriate PO SCH (20:10)
[2021-07-06] MEDS: ARICEPT TAB 10 MG PO SCH (21:09)
[2021-07-06] MEDS: COLACE CAP 100 MG PO SCH (21:09)
[2021-07-07 06:28] LABS: BASOPHILS % (AUTO) 0.5 % (0.2-1.0); EOSINOPHILS # (AUTO) 0.1 x10^3/uL (0.0-0.2); EOSINOPHILS % (AUTO) 1.3 % (0.9-2.9); HEMATOCRIT 33.9 % (42.0-54.0); HEMOGLOBIN 11.2 g/dL (13.5-18.0); LYMPHOCYTES # (AUTO) 1.8 X10^3/uL (1.3-2.9); LYMPHOCYTES % (AUTO) 19.4 % (21.0-51.0); MEAN CORPUSCULAR HEMOGLOBIN 28.9 pg (27.0-34.0); MEAN CORPUSCULAR HGB CONC 33.1 g/dL (33.0-35.0); MEAN CORPUSCULAR VOLUME 87.2 fL (80.0-100.0); MEAN PLATELET VOLUME 10.2 fL (7.4-11.0); MONOCYTES # (AUTO) 1.2 x10^3/uL (0.3-0.8); MONOCYTES % (AUTO) 12.7 % (0.0-13.0); NEUTROPHILS # (AUTO) 6.3 x10^3/uL (2.2-4.8); NEUTROPHILS % (AUTO) 66.1 % (42.0-75.0); RED BLOOD COUNT 3.89 X10^6/uL (4.7-6.0); WHITE BLOOD COUNT 9.5 X10^3/uL (3.6-10.0)
[2021-07-07 06:35] LABS: ALANINE AMINOTRANSFERASE 19 Units/L (12-78); ALBUMIN 2.2 g/dL (3.4-5.0); ALKALINE PHOSPHATASE 113 Units/L (46-116); ASPARTATE AMINO TRANSFERASE 18 Units/L (15-37); BLOOD UREA NITROGEN 20 mg/dL (7-18); CALCIUM 7.1 mg/dL (8.5-10.1); CARBON DIOXIDE 25.8 mmol/L (21-32); CHLORIDE 105 mmol/L (98-107); COR CA(FOR HYPOALB) 8.5 mg/dL (8.5-10.1); COR NA(FOR HYPERGLY) 135 mmol/L (136-145); CREATININE 0.83 mg/dL (0.70-1.30); SODIUM 135 mmol/L (136-145); TOTAL PROTEIN 4.9 g/dL (6.4-8.2); eGFR NON BLACK RACES > 60 (>60)
[2021-07-07] MEDS: MEGACE PO SCH (09:26)
[2021-07-07] MEDS: CELEXA PO SCH (09:27)
[2021-07-07] MEDS: PLAVIX PO SCH (09:27)
[2021-07-07] MEDS: PriLOSEC PO SCH (09:27)
[2021-07-07] MEDS: NAMENDA TAB 10 MG PO SCH (09:27)
[2021-07-07] MEDS: MIRALAX POWDER (1 DOSE 17 G) PO SCH (09:28)
[2021-07-07] MEDS: K-DUR TAB 20 MEQ PO SCH (09:28)
[2021-07-07] MEDS: NS 1,000 ML IV 1,000 ML IV SCH (09:28)
[2021-07-07] MEDS: MILK OF MAGNESIA PO SCH (09:28)
[2021-07-07 12:08] VITALS: BP 123/88
== END 2021-07-07 14:12 | DRG 641 ==
LOC: ER 08:34 → MED/SURG 10:29
PROVIDERS: ADMIT Internal Medicine; ATTEND Internal Medicine
DX: R26.81 Unsteadiness on feet; B96.29 Other Escherichia coli [E. coli] as the cause of diseases classified elsewhere; R94.31 Abnormal electrocardiogram [ECG] [EKG]; E11.65 Type 2 diabetes mellitus with hyperglycemia; E86.0 Dehydration; R07.81 Pleurodynia; I25.10 Atherosclerotic heart disease of native coronary artery without angina pectoris; R62.7 Adult failure to thrive; W18.39XA Other fall on same level, initial encounter; B96.4 Proteus (mirabilis) (morganii) as the cause of diseases classified elsewhere; Z79.4 Long term (current) use of insulin; Z20.822 Contact with and (suspected) exposure to COVID-19; M25.511 Pain in right shoulder; R53.1 Weakness; M79.601 Pain in right arm; R29.6 Repeated falls

== ENCOUNTER 2021-09-20 07:32 | Inpatient (IN) ==
[2021-09-20] MEDS ORDERED: ZOFRAN INJ 4 MG VIAL IVP ONE (07:44)
[2021-09-20] MEDS ORDERED: ZOFRAN INJ 4 MG VIAL ONE (07:49)
[2021-09-20 07:50] VITALS: BMI 22.8
[2021-09-20 07:56] LABS: BASOPHILS % (AUTO) 0.1 % (0.2-1.0); HEMATOCRIT 39.8 % (42.0-54.0); HEMOGLOBIN 13.1 g/dL (13.5-18.0); LYMPHOCYTES # (AUTO) 0.3 X10^3/uL (1.3-2.9); LYMPHOCYTES % (AUTO) 1.5 % (21.0-51.0); MEAN CORPUSCULAR HEMOGLOBIN 29.5 pg (27.0-34.0); MEAN CORPUSCULAR HGB CONC 32.9 g/dL (33.0-35.0); MEAN CORPUSCULAR VOLUME 89.7 fL (80.0-100.0); MEAN PLATELET VOLUME 8.8 fL (7.4-11.0); MONOCYTES # (AUTO) 1.2 x10^3/uL (0.3-0.8); NEUTROPHILS # (AUTO) 19.2 x10^3/uL (2.2-4.8); NEUTROPHILS % (AUTO) 92.4 % (42.0-75.0); RED BLOOD COUNT 4.44 X10^6/uL (4.7-6.0); RED CELL DISTRIBUTION WIDTH 13.6 % (11.6-16.5); WHITE BLOOD COUNT 20.7 X10^3/uL (3.6-10.0)
[2021-09-20 08:05] LABS: ABG ALLEN TEST POS; ABG HCO3 16.7 mmol/L (22-26)
--- NOTE | 2021-09-20 08:13 | RAD ---
HISTORYRespiratory distress, unresponsiveSTUDYChest AP [id number]/15/2022FINDINGSHear t size is normal. Terra are normal. Aorta is mildly ectatic. Diffuse alveolar infiltrate is present throughout the right lower lobe most consistent with acute pneumonia. Remainder of the lung fritz are clear. No pleural effusions or pneumothoraces identified. Bony thorax is unremarkable.IMPRESSIONDiffuse alveolar right lower lobe pneumoniaElectronically signed by: MARKIE ZAFAR (September 20, 2021 08:13:48)
[2021-09-20] MEDS ORDERED: ZOSYN VIAL 3.375 GRAMS 3.375 G in NS 100 ML IV 100 ML IV ONE (08:15)
[2021-09-20 08:22] LABS: BAND NEUTROPHILS % 2 % (0-10); PLATELET MORPHOLOGY COMMENT NORMAL (NORMAL)
[2021-09-20] MEDS ORDERED: ZOSYN VIAL 3.375 GRAMS IV ONE (08:27)
[2021-09-20] MEDS ORDERED: NS 1,000 ML IV 1,000 ML ONE (08:28)
[2021-09-20 08:31] LABS: ALBUMIN 2.6 g/dL (3.4-5.0); CARBON DIOXIDE 19.6 mmol/L (21-32); CKMB % 4.6 % (<4); COR CA(FOR HYPOALB) 10.1 mg/dL (8.5-10.1); CREATINE KINASE MB 3.6 ng/mL (0-4.0); CREATININE 1.62 mg/dL (0.70-1.30); TOTAL PROTEIN 6.8 g/dL (6.4-8.2)
[2021-09-20] MEDS: NS 1,000 ML IV 1,000 ML IV SCH ×2 (08:46→17:27)
--- NOTE | 2021-09-20 09:10 | DR.SOBA ---
HPI Time Seen Time Seen by Provider: 09/20/21 08:10 Primary Care Physician Primary Care Physician: MARIA LUSIA HPI Comment HPI Comment: A 76 y/o male senior care resident brought over as he was noted in resp. distress with low O2 sats. He was also said to be unresponsive. His fingerstick BS was 40 at the time. Upon arrival here per ED staff, he was no lo nger in distress and he was responsive. Complaints Chief Complaint:: THEA FROM [facility] CALL[facility] AND STATES PT. WAS BEING SENT TO THE ER FOR RESPIRATORY DISTRESS THAT STARTED 10-15 MINUTES PRIOR. SHE STATES PT'S O2 SAT WAS 78% ON ROOM AIR AND B/P WAS UNOBTAINABLE. STAFF STATES PT. WAS FOUND UNRESPONSIVE IN HIS ROOM AROUND 5AM AND BLOOD SUGAR WAS 40. PRIOR TO ARRIVAL, OTBS WAS 145 PER [facility] STAFF. UPON ARRIVAL TO THE ER, PT. IS AWAKE AND ALERT. SKIN IS PALE & COOL TO TOUCH. PT. IS ATTEMPTING TO VOMIT. O2 SAT 82% ON N/C @ 3LPM. COVID-19 Coronavirus risk:travel/contact w/high risk person: No Has patient experienced Coronavirus symptoms: Yes Coronavirus symptoms experienced: Shortness of Breath Reviewed Nurses Notes Reviewed: Yes Source History Provided: Detention Mode of Arrival Mode of Arrival: Stretcher Timing Onset of Chief Complaint: 09/20/21 Context Onset:: At Rest PE Risk Factors:: Immobilization History of:: None Currently on:: Neither Prehospital Care:: None Modifying Factors Worsens:: Nothing Improves:: Nothing Associated Signs and Symptoms Associated Signs and Symptoms: None PMH PMH Past Medical History: Yes Past Medical History: Coronary Artery Disease, CVA, Dementia, Diabetes and CT Past Surgical History: Yes Surgical History: Angioplasty/Stents Family History History of Family Medical Conditions: Yes Family Medical History: Diabetes Mellitus, CT and Hypertension Social History Does patient currently use any type of tobacco product: No Have you used tobacco products in the last 12 months: No Type of Tobacco Use: None Does any household member use tobacco: No Alcohol Use: None Do you use any recreational Drugs:: No Lives Where: Detention Travel Risk Coronavirus risk:travel/contact w/high risk person: No Has patient experienced Coronavirus symptoms: Yes Coronavirus symptoms experienced: Shortness of Breath Infectious screening In the last 2 months have you had wt loss of >10#?: NO Have you had fever, night sweats or hemotysis?: No Have you traveled outside the country in the last 6 months?: No Isolation: Standard ROS Review of Systems Constitutional: No Symptoms Reported Eyes: No Symptoms Reported ENTM: No Symptoms Reported Respiratoy: Short of Breath Cardiovascular: No Symptoms Reported Gastrointestinal/Abdominal: No Symptoms Reported Genitourinary: No Symptoms Reported Neurological: Other (unreponsive) Musculoskeletal: No Symptoms Reported Integumentary: No Symptoms Reported Hematologic/Lymphatic: No Symptoms Reported Endocrine: No Symptoms Reported Psychiatric: No Symptoms Reported PE Vital Signs Vitals: Temperature 97.1 F Pulse Rate 104 Respiratory Rate 29 Blood Pressure [Left Arm] 123/88 Blood Pressure 98/71 O2 Sat by Pulse Oximetry 93 General Limitations: No Limitations General Appearance: Alert and In No Apparent Distress Head Head Exam: Normal Inspection, Atraumatic and Normocephalic Eyes Eye exam: Normal Appearance and EOMI ENT ENT Exam: Normal Exam, Normal Oropharynx, Normal External Ear Exam and Mucous Membranes Moist Neck Neck Exam: Normal Inspection, Full ROM and Trachea Midline Chest Chest Inspection: Normal Inspection and Symmetric Chest Wall Rise Respiratory Respiratory Exam: Bilateral: Wheezing and Bilateral: Rhonchi and Lower: Rhonchi Cardiovascular Cardiovascular Exam: Regular Rate, Normal Rhythm, Normal Heart Sounds, +S1 and +S2 Abdominal Exam Abdominal Exam: Normal Inspection, Normal Bowel Sounds and Soft Extremities Extremities Exam: Normal Inspection and Full ROM Back Back Exam: Normal Inspection and Full ROM Neurologic Neurological Exam: Alert Psychiatric Psychiatric Exam: Normal Affect and Normal Mood Skin Skin Exam: Intact COURSE Treatment Treatment: After speaking with Dr. Contreras, the pt. was admitted and cj padilla written. Reevaluation 1st: Unchanged Education/Counseling Education/Counseling: Patient, Education and Counseling Educated On: Treatment, Diagnosis, Prognosis and Needs for Follow Up ROR Labs Reviewed Laboratory Results Reviewed?: Yes Result Diagrams: 09/20/21 07:45 09/20/21 07:45 Laboratory: WBC 20.7 X10^3/uL (3.6-10.0) H 09/20/21 07:45 RBC 4.44 X10^6/uL (4.7-6.0) L 09/20/21 07:45 Hgb 13.1 g/dL (13.5-18.0) L 09/20/21 07:45 Hct 39.8 % (42.0-54.0) L 09/20/21 07:45 MCV 89.7 fL (80.0-100.0) 09/20/21 07:45 MCH 29.5 pg (27.0-34.0) 09/20/21 07:45 MCHC 32.9 g/dL (33.0-35.0) L 09/20/21 07:45 RDW 13.6 % (11.6-16.5) 09/20/21 07:45 Plt Count 408 X10^3/uL (150.0-450.0) 09/20/21 07:45 Plt Count Comment Adequate (ADEQUATE) 09/20/21 07:45 MPV 8.8 fL (7.4-11.0) 09/20/21 07:45 Neut % (Auto) 92.4 % (42.0-75.0) H 09/20/21 07:45 Lymph % (Auto) 1.5 % (21.0-51.0) L 09/20/21 07:45 [place] % (Auto) 6.0 % (0.0-13.0) 09/20/21 07:45 Eos % (Auto) 0.0 % (0.9-2.9) L 09/20/21 07:45 Baso % (Auto) 0.1 % (0.2-1.0) L 09/20/21 07:45 Neut # (Auto) 19.2 x10^3/uL (2.2-4.8) H 09/20/21 07:45 Lymph # (Auto) 0.3 X10^3/uL (1.3-2.9) L 09/20/21 07:45 [place] # (Auto) 1.2 x10^3/uL (0.3-0.8) H 09/20/21 07:45 Eos # (Auto) 0.0 x10^3/uL (0.0-0.2) 09/20/21 07:45 Baso # (Auto) 0.0 X10^3/uL (0.0-0.1) 09/20/21 07:45 Absolute Nucleated RBC 0.0 /100WBC 09/20/21 07:45 Total Counted 100 09/20/21 07:45 Neutrophils % (Manual) 94 % (39-76) H 09/20/21 07:45 Band Neutrophils % 2 % (0-10) 09/20/21 07:45 Lymphocytes % (Manual) 2 % (13-43) L 09/20/21 07:45 Monocytes % (Manual) 2 % (4-9) L 09/20/21 07:45 Plt Morphology Comment Normal (NORMAL) 09/20/21 07:45 RBC Morphology Normal (NORMAL) 09/20/21 07:45 Sample Site Rr 09/20/21 08:00 ABG pH 7.340 (7.35-7.45) L 09/20/21 08:00 ABG pCO2 31.0 mmHg (35.0-45.0) L 09/20/21 08:00 ABG pO2 46.0 mmHg (80.0-100.0) L* 09/20/21 08:00 ABG HCO3 16.7 mmol/L (22-26) L* 09/20/21 08:00 ABG O2 Saturation 79.0 % (90-100) L* 09/20/21 08:00 ABG Base Excess -8.0 mmol/L (-2.0-2.0) L 09/20/21 08:00 Dwight Test Pos 09/20/21 08:00 A-a Gradient 172.0 mmHg 09/20/21 08:00 FiO2 36.0 09/20/21 08:00 Blood Gas Comments Pt irina well cdn/ej 09/20/21 08:00 Sodium 137 mmol/L (136-145) 09/20/21 07:45 Corrected Sodium 140 mmol/L (136-145) 09/20/21 07:45 Potassium 4.5 mmol/L (3.5-5.1) 09/20/21 07:45 Chloride 100 mmol/L (98-107) 09/20/21 07:45 Carbon Dioxide 19.6 mmol/L (21-32) L 09/20/21 07:45 BUN 37 mg/dL (7-18) H 09/20/21 07:45 Creatinine 1.62 mg/dL (0.70-1.30) H 09/20/21 07:45 Est GFR (MDRD) Af Amer 53 (>60) L 09/20/21 07:45 Est GFR (MDRD) Non-Af 44 (>60) L 09/20/21 07:45 Glucose 208 mg/dL (65-99) H 09/20/21 07:45 Lactic Acid 7.5 mmol/L (0.4-2.0) H 09/20/21 08:39 Calcium 9.0 mg/dL (8.5-10.1) 09/20/21 07:45 Corrected Calcium 10.1 mg/dL (8.5-10.1) 09/20/21 07:45 Total Bilirubin 0.30 mg/dL (0.2-1.0) 09/20/21 07:45 AST 18 Units/L (15-37) 09/20/21 07:45 ALT 15 Units/L (12-78) 09/20/21 07:45 Alkaline Phosphatase 117 Units/L (46-116) H 09/20/21 07:45 Creatine Kinase 79 Units/L (39-308) 09/20/21 07:45 CK-MB (CK-2) 3.6 ng/mL (0-4.0) 09/20/21 07:45 CK/CKMB % Calc 4.6 % (<4) 09/20/21 07:45 Troponin I High Sens 115.8 ng/L (4.0-60.0) H* 09/20/21 07:45 Total Protein 6.8 g/dL (6.4-8.2) 09/20/21 07:45 Albumin 2.6 g/dL (3.4-5.0) L 09/20/21 07:45 Globulin 4.2 g/dL (2.5-4.5) 09/20/21 07:45 Albumin/Globulin Ratio 0.6 Ratio (1.1-2.1) L 09/20/21 07:45 SARS-CoV-2 (PCR) Negative (NEGATIVE) 09/20/21 08:03 Influenza Type A (PCR) Negative (NEGATIVE) 09/20/21 08:03 Influenza Type B (PCR) Negative (NEGATIVE) 09/20/21 08:03 RSV (PCR) Negative (NEGATIVE) 09/20/21 08:03 XRAY XRAY Interpreted by: Self X-ray Results: CXR: RLL infiltrate. Radiology report is pending. EKG Rate: 104 [place]: LAD Rhythm: ST Block: 1 Hypertrophy: None ST: Normal Opioid Opioid Risk Tool Age ([place] if 16-45): No History of Preadolescent Sexual Abuse: No Total: 0 Total Score Risk Category: Low Risk Copyright: Cricket CORDOBA predicting aberrant behaviors Diagnosis Discharge Problem: Pneumonia, lobar, Dementia, Diabetes mellitus, CAD (coronary artery disease), Hypoxia, Leukocytosis Instructions Forms: Precautions for COVID19 [facility] Social Distancing
[2021-09-20] MEDS ORDERED: TYLENOL 325 MG TAB PO PRN (09:51)
[2021-09-20] MEDS ORDERED: INSULIN REGULAR HUMAN 100 UNIT/ML SUBCUT SCH (09:51)
[2021-09-20] MEDS ORDERED: NovoLIN R (or HumuLIN R) SUBCUT PRN (10:45)
[2021-09-20] MEDS: ZOSYN VIAL 3.375 GRAMS 3.375 G in NS 100 ML IV 100 ML IV SCH ×3 (10:46→21:29)
[2021-09-20] MEDS: NAMENDA TAB 10 MG PO SCH (11:19)
[2021-09-20] MEDS: TAB-A-VITE PO SCH (11:20)
[2021-09-20] MEDS: PROTONIX TAB 40 MG PO SCH (11:20)
[2021-09-20] MEDS ORDERED: SALINE 3% 15 ML NEB TX NEB ONE (13:35)
[2021-09-20] MEDS: DUONEB 0.5 MG/3 MG (3 mL) NEB SCH ×3 (13:35→21:00)
[2021-09-20] MEDS ORDERED: SALINE 3% 15 ML NEB TX ONE (13:37)
[2021-09-20] MEDS ORDERED: ZOSYN VIAL 4.5 GRAMS 4.5 G in NS 100 ML IV + SPIKE MINIBAG* 100 ML IV SCH (14:00)
--- NOTE | 2021-09-20 17:57 | DR.H&P ---
H&P - History & Physical for Day of: H&P Date: 09/20/21 - Chief Complaint Chief Complaint: LOW OXYGEN SATURATIONS, RESPIRATORY DISTRESS, LOW BLOOD GLUCOSE, DECREASED RESPONSIVENESS - History of Present Illness History of Present Illness: IS A 76 YEAR OLD PATIENT OF OURS. HE IS A RESIDENT OF [facility]. PATIENT WAS BROUGHT OVER FROM [place] IN ACTIVE RESPIRATORY DISTRESS WITH LOW OXYGEN SATURATIONS. HE HAD DECREASED RE SPONSIVENESS. CARE HOME STAFF REPORTS THAT HIS OXYGEN SATURATIONS WERE 78% ON ROOM AIR. BLOOD GLUCOSE LEVEL WAS 40 AT 05:00, AND HIS BLOOD PRESSURE WAS UNOBTAINABLE. PRIOR TO ARRIVAL TO THE ER, OTBS WAS NOTED TO HAVE INCREASED TO 145. HE WAS PLACED ON NASAL CANNULA. ON ARRIVAL TO THE ER, HE WAS NOTED TO BE ALERT. SKIN WAS PALE AND COOL TO TOUCH. OXYGEN SATURATIONS WERE NOTED TO BE 82% ON NASAL CANNULA AT 3 LPM. HE WAS ATTEMPTING TO VOMIT ON ARRIVAL. HIS PMH INCLUDES CAD, CVA, DEMENTIA, DM II, VA, CARDIAC STENTS, GERD, DEPRESSION. ON ARRIVAL TO THE ER, VITALS WERE 97.1-113-31-82%NC@3-103/74. WARM BLANKETS WERE APPLIED. LABS WERE OBTAINED. WBC 20.7, RBC 4.44, HGB 13.1, HCT 39.8, D-DIMER 7.70, SODIUM 137, POTASSIUM 4.5, CHLORIDE 100, CARBON DIOXIDE 19.6, BUN 37, CREATININE 1.62, GLUCOSE 208, LACTIC ACID 7.5, CALCIUM 9.0, TOTAL BILI 0.30, AST 18, ALT 15, ALK PHOS 117, TOTAL PROTEIN 6.8, ALBUMIN 2.6. BLOOD CULTURES WERE SET UP. HIGH SENSITIVITY TROPONIN WAS ELEVATED AT 115.8. COVID, INFLUENZA, RSV NEGATIVE. ABG OBTAINED AND REVEALED: PH 7.340, PC02 31, P02 46, HC03 16.7, 02 SAT 79, BASE EXCESS -8.0, A-A GRADIENT 172, FI02 36.0. A CHEST XRAY WAS OBTAINED AND REVEALED: Heart size is normal. Terra are normal. Aorta is mildly ectatic. Diffuse alveolar infiltrate is present throughout the right lower lobe most consistent with acute pneumonia. Remainder of the lung fritz are clear. No pleural effusions or pneumothoraces identified. Bony thorax is unremarkable. EKG OBTAINED AND REVEALED: SINUS TACHYCARDIA WITH HR 104. IN THE ER, HE WAS GIVEN ZOFRAN 4MG IV X 1, ZOSYN 3.375G IV X 1, AND A SALINE NEB TX. HE WAS ADMITTED TO THE HOSPITAL INPATIENT STATUS FOR FURTHER EVALUATION AND TREATMENT OF RIGHT LOWER LOBE PNEUMONIA, HYPOXIA, LEUKOCYTOSIS, LACTIC ACIDOSIS. HE WAS STARTED ON NORMAL SALINE AT 125ML/HR, ZOSYN 3.375G IV TID, DUONEBS Q4H, VSL #3 2 CAPS DAILY, HUMULIN R SLIDING SCALE, OTBS ACHS, AND HIS HOME MEDICATIONS WERE RESUMED. WE WILL OBTAIN SPUTUM CULTURES. WE WILL REPEAT AM LABS, CHEST XRAY, CARDIAC ENZYMES, ABG, LACTIC ACID, AND CHEST CTA. OTHERWISE, WE WILL FOLLOW-UP WITH AM LABS AND CONTINUE TO MONITOR. TIME SPENT ON CLINICAL ASSESSMENT, REVIEWING LABS AND IMAGING, DECISION MAKING, AND DOCUMENTATION GREATER THAN 75 MINUTES. - Past Medical History Past Medical History: VA, Coronary Artery Disease, Diabetes, Dementia, CVA - Past Surgical History Surgical History: Angioplasty/Stents, Ortho Surgery - Family History Family Medical History: Diabetes Mellitus, [place], Hypertension - Social History Does patient currently use any type of tobacco product: No Have you used tobacco products in the last 12 months: No Type of Tobacco Use: None Does any household member use tobacco: No Alcohol Use: None Drug Use: None - Medications Home Medications: No Known Drug Allergies Allergy (Verified 09/20/21 07:59) CONTINUE taking the following medications amino ac-protein hydr-whey pro 1 ea PO BID 09/20/21 [History] insulin regular human [Novolin R Regular U-100 Insuln] 1 sliding scale dose SUBCUT USEASDIRECTD 09/20/21 [History] megestrol 40 mg PO BID 09/20/21 [History] - Review of Systems Constitutional: Weakness Eyes: No Symptoms Reported ENT: No Symptoms Reported Respiratory: See HPI, Cough, Shortness of Breath, SOB with Excertion Cardiovascular: No Symptoms Reported Gastrointestinal: No Symptoms Reported Genitourinary: No Symptoms Reported Musculoskeletal: No Symptoms Reported Skin: No Symptoms Reported Neurological: See HPI, Weakness, Change in Speech, Confusion - Physical Exam Vital Signs: Temperature 98.7 F Pulse Rate [Bilateral Radial] 105 Pulse Rate 86 Respiratory Rate 27 Blood Pressure [Left Arm] 163/76 Blood Pressure 98/64 O2 Sat by Pulse Oximetry 97 Oriented: Not Oriented Eyes: Normal Ear: Normal Nose: Normal Throat: Normal Respiratory: Rhonchi Throughout, Wheezes Throughout Cardiovascular: Tachycardia : Normal Auscultation: Bowel Sounds: Normal Palpation: Normal Tenderness: Normal Skin: Normal Musculoskeletal: Normal Psychiatric: Normal Mood Description: Flat Affect: Flat Speech Pattern: Inappropriate - Assessment/Plan (1) Pneumonia Qualifiers: Pneumonia type: due to unspecified organism Laterality: right Lung location: unspecified part of lung Qualified Code(s): J18.9 - Pneumonia, unspecified organism Status: Acute Plan: ADMIT, SUPPLEMENTAL OXYGEN, NORMAL SALINE AT 125ML/HR, ZOSYN 3.375G IV TID, DUONEBS Q4H, VSL #3 2 CAPS DAILY, HUMULIN R SLIDING SCALE, OTBS ACHS, AND HIS HOME MEDICATIONS WERE RESUMED. (2) Leukocytosis Qualifiers: Leukocytosis type: unspecified Qualified Code(s): D72.829 - Elevated white blood cell count, unspecified Status: Acute (3) Hypoxia Status: Acute (4) Lactic acidosis Status: Acute (5) Dementia Qualifiers: Dementia type: unspecified type Dementia behavioral disturbance: without behavioral disturbance Qualified Code(s): F03.90 - Unspecified dementia without behavioral disturbance Status: Chronic (6) Diabetes mellitus Qualifiers: Diabetes mellitus type: type 2 Diabetes mellitus roasterman insulin use: with prison use Diabetes mellitus complication status: with hyperglycemia Qualified Code(s): E11.65 - Type 2 diabetes mellitus with hyperglycemia; Z79.4 - intermediate manager (current) use of insulin Status: Chronic (7) CAD (coronary artery disease) Qualifiers: Coronary Disease-Associated Artery/Lesion type: [place] artery [place] vs. transplanted heart: [place] heart Associated angina: with unspecified form of angina Qualified Code(s): I25.119 - Atherosclerotic heart disease of [place] coronary artery with unspecified angina pectoris Status: Chronic - Allergies Allergies/Adverse Reactions: Allergies Allergy/AdvReac Type Severity Reaction Status Date / Time No Known Drug Allergies Allergy Verified 09/20/21 07:59
[2021-09-20] MEDS ORDERED: PULMICORT NEB TX 0.5 MG NEB ONE ×2 (20:05→20:06)
[2021-09-20] MEDS: MEGACE PO SCH (20:53)
[2021-09-20] MEDS: ARICEPT TAB 10 MG PO SCH (20:53)
[2021-09-20] MEDS: SNACK - Diabetic Appropriate PO SCH (20:53)
[2021-09-20] MEDS: PULMICORT NEB TX 0.5 MG NEB SCH (21:00)
[2021-09-20] MEDS ORDERED: AMINO AC PROTEIN HYDR WHEY PRO PO SCH (21:00)
[2021-09-20] MEDS ORDERED: [UNRECOGNIZED DRUG - OTHER] PO SCH (21:00)
[2021-09-21] MEDS: DUONEB 0.5 MG/3 MG (3 mL) NEB SCH ×6 (00:25→21:20)
[2021-09-21] MEDS: NS 1,000 ML IV 1,000 ML IV SCH ×4 (01:12→18:07)
[2021-09-21 05:23] LABS: ABG ALLEN TEST POS; ABG BASE EXCESS 6.5 mmol/L (-2.0-2.0); ABG HCO3 28.9 mmol/L (22-26)
[2021-09-21 05:29] LABS: BASOPHILS # (AUTO) 0.1 X10^3/uL (0.0-0.1); BASOPHILS % (AUTO) 0.2 % (0.2-1.0)
[2021-09-21] MEDS: ZOSYN VIAL 3.375 GRAMS 3.375 G in NS 100 ML IV 100 ML IV SCH ×3 (05:37→22:08)
[2021-09-21 05:41] LABS: LACTIC ACID 2.3 mmol/L (0.4-2.0)
[2021-09-21 05:43] LABS: ALANINE AMINOTRANSFERASE 10 Units/L (12-78); ALBUMIN 2.2 g/dL (3.4-5.0); ALKALINE PHOSPHATASE 93 Units/L (46-116); ASPARTATE AMINO TRANSFERASE 15 Units/L (15-37); BLOOD UREA NITROGEN 35 mg/dL (7-18); CALCIUM 8.6 mg/dL (8.5-10.1); CARBON DIOXIDE 26.8 mmol/L (21-32); CHLORIDE 102 mmol/L (98-107); CREATININE 1.47 mg/dL (0.70-1.30); SODIUM 139 mmol/L (136-145); TOTAL PROTEIN 5.7 g/dL (6.4-8.2); eGFR NON BLACK RACES 49 (>60)
[2021-09-21 05:49] LABS: EOSINOPHILS % (AUTO) 0.1 % (0.9-2.9); HEMATOCRIT 31.2 % (42.0-54.0); LYMPHOCYTES # (AUTO) 1.9 X10^3/uL (1.3-2.9); LYMPHOCYTES % (AUTO) 7.6 % (21.0-51.0); MEAN CORPUSCULAR HEMOGLOBIN 29.4 pg (27.0-34.0); MEAN CORPUSCULAR HGB CONC 33.4 g/dL (33.0-35.0); MEAN PLATELET VOLUME 9.5 fL (7.4-11.0); MONOCYTES # (AUTO) 1.5 x10^3/uL (0.3-0.8); MONOCYTES % (AUTO) 6.1 % (0.0-13.0); NEUTROPHILS # (AUTO) 21.3 x10^3/uL (2.2-4.8); RED BLOOD COUNT 3.54 X10^6/uL (4.7-6.0); RED CELL DISTRIBUTION WIDTH 13.3 % (11.6-16.5); WHITE BLOOD COUNT 24.8 X10^3/uL (3.6-10.0)
[2021-09-21 05:52] LABS: HEMOGLOBIN 10.4 g/dL (13.5-18.0)
[2021-09-21 07:05] LABS: BAND NEUTROPHILS % 7 % (0-10); PLATELET MORPHOLOGY COMMENT NORMAL (NORMAL)
--- NOTE | 2021-09-21 07:25 | RAD ---
HISTORYSOB; RIGHT LL PNEUMONIASTUDYCHEST, 1 [id number]/04/2022.TECHNIQUEAP view of the chestFINDINGSCardiac and mediastinal contours are within normal limits. No significant change in right mid to lower lung airspace opacity. No definite pleural effusion or pneumothorax.IMPRESSIONNo significant change. Similar appearance of right lung pneumonia.Electronically signed by: Ricardo Khoury (September 21, 2021 07:23:29)
[2021-09-21] MEDS ORDERED: GLUCOPHAGE ONE (08:05)
[2021-09-21] MEDS: CELEXA PO SCH (08:28)
[2021-09-21] MEDS: PROTONIX TAB 40 MG PO SCH (08:29)
[2021-09-21] MEDS: GLUCOPHAGE PO SCH (08:29)
[2021-09-21] MEDS: NAMENDA TAB 10 MG PO SCH (08:29)
[2021-09-21] MEDS: MEGACE PO SCH ×2 (08:29→20:07)
[2021-09-21] MEDS: ZOFRAN INJ 4 MG VIAL IVP PRN (08:35)
[2021-09-21] MEDS: PLAVIX PO SCH (08:40)
[2021-09-21] MEDS ORDERED: PriLOSEC PO SCH (09:00)
[2021-09-21] MEDS: K-DUR TAB 20 MEQ PO SCH (09:19)
[2021-09-21 09:20] LABS: CKMB % 3.8 % (<4); CREATINE KINASE MB 3.2 ng/mL (0-4.0)
[2021-09-21] MEDS: TAB-A-VITE PO SCH (09:20)
[2021-09-21] MEDS: VSL#3 PO SCH (09:20)
[2021-09-21] MEDS: LEVAQUIN PREMIX IV 500 MG 500 MG/100 ML BAG IV SCH (09:20)
[2021-09-21] MEDS: VITAMIN B-12 PO SCH (09:20)
[2021-09-21] MEDS: PULMICORT NEB TX 0.5 MG NEB SCH ×2 (09:30→21:20)
--- NOTE | 2021-09-21 09:40 | CT ---
HISTORYPneumonia, hypoxia, elevated D-dimerSTUDYCTA chest with contrast for pulmonary embolusTechnique: Axial post-contrast images with coronal and sagittal reformats. Dose reduction procedures were used with mA/kv adjusted for body size.[id number]/2022FINDINGSThere is no evidence for acute pulmonary thromboembolic disease. Examination of the mediastinum demonstrated no evidence for mediastinal masses, enlarged mediastinal or enlarged hilar adenopathy or significant aortic abnormality. Coronary artery calcifications are present. The heart is enlarged. No pleural effusions are identified. No chest wall or axillary abnormality is identified. Those portions of the upper abdominal organs visualized were within normal limits to the limitations of early arterial injection timing. Upper thoracic compression fractures are present and unchanged from 06/13/2021. Examination of the lung fritz demonstrated alveolar infiltrates to be present in the posterior aspect of the right upper lobe and in the superior segments of the left lower lobe most consistent with acute pneumonia. The remainder of the lung fritz are free of infiltrates, nodules, masses, areas of consolidation.IMPRESSIONNo evidence for acute pulmonary thromboembolic diseaseFindings consistent with multifocal pneumonia involving the right upper and right lower lobes.Upper thoracic compression fractures unchanged when compared with the prior examinationElectronically signed by: MARKIE ZAFAR (September 21, 2021 09:38:34)
[2021-09-21] MEDS: SNACK - Diabetic Appropriate PO SCH (20:06)
[2021-09-21] MEDS: ARICEPT TAB 10 MG PO SCH (20:07)
[2021-09-22] MEDS: DUONEB 0.5 MG/3 MG (3 mL) NEB SCH ×6 (01:25→21:10)
[2021-09-22 05:20] LABS: BASOPHILS # (AUTO) 0.1 X10^3/uL (0.0-0.1); BASOPHILS % (AUTO) 0.4 % (0.2-1.0); EOSINOPHILS # (AUTO) 0.1 x10^3/uL (0.0-0.2); EOSINOPHILS % (AUTO) 0.7 % (0.9-2.9); HEMATOCRIT 27.1 % (42.0-54.0); HEMOGLOBIN 9.2 g/dL (13.5-18.0); LYMPHOCYTES # (AUTO) 1.6 X10^3/uL (1.3-2.9); LYMPHOCYTES % (AUTO) 9.4 % (21.0-51.0); MEAN CORPUSCULAR HEMOGLOBIN 29.7 pg (27.0-34.0); MEAN CORPUSCULAR HGB CONC 33.9 g/dL (33.0-35.0); MEAN CORPUSCULAR VOLUME 87.6 fL (80.0-100.0); MEAN PLATELET VOLUME 8.7 fL (7.4-11.0); MONOCYTES # (AUTO) 1.4 x10^3/uL (0.3-0.8); MONOCYTES % (AUTO) 7.8 % (0.0-13.0); NEUTROPHILS # (AUTO) 14.3 x10^3/uL (2.2-4.8); NEUTROPHILS % (AUTO) 81.7 % (42.0-75.0); RED BLOOD COUNT 3.09 X10^6/uL (4.7-6.0); RED CELL DISTRIBUTION WIDTH 13.8 % (11.6-16.5); WHITE BLOOD COUNT 17.5 X10^3/uL (3.6-10.0)
[2021-09-22 05:22] LABS: LACTIC ACID 0.6 mmol/L (0.4-2.0)
[2021-09-22] MEDS: ZOSYN VIAL 3.375 GRAMS 3.375 G in NS 100 ML IV 100 ML IV SCH ×3 (05:35→22:00)
[2021-09-22] MEDS: NS 1,000 ML IV 1,000 ML IV SCH ×3 (05:35→17:25)
[2021-09-22 06:00] LABS: ABG ALLEN TEST POS; ABG BASE EXCESS 5.5 mmol/L (-2.0-2.0); ABG HCO3 28.9 mmol/L (22-26)
[2021-09-22 06:10] LABS: ALANINE AMINOTRANSFERASE 13 Units/L (12-78); ALBUMIN 2.1 g/dL (3.4-5.0); ALKALINE PHOSPHATASE 86 Units/L (46-116); ASPARTATE AMINO TRANSFERASE 15 Units/L (15-37); BLOOD UREA NITROGEN 22 mg/dL (7-18); CARBON DIOXIDE 24.8 mmol/L (21-32); CHLORIDE 105 mmol/L (98-107); COR CA(FOR HYPOALB) 9.5 mg/dL (8.5-10.1); CREATININE 1.18 mg/dL (0.70-1.30); SODIUM 138 mmol/L (136-145); TOTAL PROTEIN 5.4 g/dL (6.4-8.2); eGFR NON BLACK RACES > 60 (>60)
--- NOTE | 2021-09-22 07:10 | RAD ---
HISTORYShortness of breathSTUDYChest AP [id number]/05/2022 chest x-ray and CTA chestFINDINGSPatient is rotated slightly to the left. Heart is enlarged. No congestive heart failure is noted. Perihilar right upper and right lower lobe infiltrates are unchanged. Left lung appears clear. No pleural effusion or pneumothorax identified. Bony thorax is unremarkable.IMPRESSIONNo significant change from the prior examinationElectronically signed by: MARKIE ZAFAR (September 22, 2021 07:09:46)
[2021-09-22] MEDS: K-DUR TAB 20 MEQ PO SCH (08:03)
[2021-09-22] MEDS: CELEXA PO SCH (08:03)
[2021-09-22] MEDS: PROTONIX TAB 40 MG PO SCH (08:04)
[2021-09-22] MEDS: NAMENDA TAB 10 MG PO SCH (08:04)
[2021-09-22] MEDS: MEGACE PO SCH ×2 (08:04→20:32)
[2021-09-22] MEDS: LEVAQUIN PREMIX IV 500 MG 500 MG/100 ML BAG IV SCH (08:04)
[2021-09-22] MEDS: TAB-A-VITE PO SCH (08:05)
[2021-09-22] MEDS: VSL#3 PO SCH (08:05)
[2021-09-22] MEDS: VITAMIN B-12 PO SCH (08:19)
[2021-09-22] MEDS: PLAVIX PO SCH (08:49)
[2021-09-22] MEDS: PULMICORT NEB TX 0.5 MG NEB SCH ×2 (08:51→21:10)
--- NOTE | 2021-09-22 11:44 | PCM.PROG ---
Progress Note - Progress Note for Day of Date of Exam: 09/21/21 - Subjective Subjective: WAS ADMITTED INPATIENT STATUS FOR TREATMENT OF RIGHT SIDED PNEUMONIA, LEUKOCYTOSIS, HYPOXIA, LACTIC ACIDOSIS. HE IS A RESIDENT OF [facility]. HE HAS A HX OF DEMENTIA, DM II, CAD. TODAY, HE IS ALERT, SITTING UP IN BED ON MORNING ROUNDS. HE AKNOWLEDGES OUR PRESENCE AND IS ABLE TO FOLLOW COMMANDS. ON EXAMINATION, HEART IS REGULAR IN RATE AND RHYTHM. BILATERAL LUNGS NOTED WITH RHONCHI THROUGHOUT. ABDOMEN IS ROUND, SOFT, AND NON-TENDER WITH NORMAL BOWEL SOUNDS NOTED IN ALL QUADRANTS. NO UPPER OR LOWER EXTREMITY EDEMA NOTED. HE IS CURRENTLY UTILIZING OXYGEN VIA NASAL CANNULA AT 2 LPM. SATURATIONS HAVE BEEN IN THE 90s THROUGHOUT THE NIGHT. NO OVERNIGHT EVENTS. HIS VITALS THIS MORNING ARE: 98.2-88-17-99%-107/57. LABS WERE OBTAINED. WBC INCREASED FROM 20.7 TO 24.8, RBC 3.54, HGB 10.4, HCT 31.2, D-DIMER 3.07, SODIUM 139, POTASSIUM 4.5, BUN 35, CREATININE 1.47, GLUCOSE 110, LACTIC ACID 2.3, AST 15, ALT 10, ALK PHOS 93, TROPONIN 91.1, BNP 415, TOTAL PROTEIN 5.7, ALBUMIN 2.2. ABG REVEALED: PH 7.550, PC02 33, P02 64, HC03 28.9, 02 SAT 95, BASE EXCESS 6.5, A-A GRADIENT 44, FI02 21.0. BLOOD CULTURE ARE PENDING. HE HAS BEEN UNABLE TO PRODUCE A SPUTUM YET. CHEST CTA OBTAINED THIS MORNING AND REVEALED: No evidence for acute pulmonary thromboembolic disease. Findings consistent with multifocal pneumonia involving the right upper and right lower lobes. Upper thoracic compression fractures unchanged when compared with the prior examination. HE IS CURRENTLY RECEIVING NORMAL SALINE AT 125ML/HR, ZOSYN 3.375G IV TID, DUONEBS Q4H, VSL #3 2 CAPS DAILY, HUMULIN R SLIDING SCALE, OTBS ACHS, AND HIS HOME MEDICATIONS WERE RESUMED. WE WILL ADD LEVAQUIN 500MG IV DAILY. OTHERWISE, WE WILL CONTINUE WITH CURRENT PLAN OF CARE TODAY. WE PLAN TO FOLLOW-UP WITH AM LABS AND CHEST XRAY AND CONTINUE TO MONITOR. TIME SPENT ON CLINICAL ASSESSMENT, REVIEWING LABS AND IMAGING, DECISION MAKING, AND DOCUMENTATION GREATER THAN 45 MINUTES. - Past Medical Family Social History Past Med/Fam/Surg Hx: No changes since H&P Allergies: Allergies No Known Drug Allergies Allergy (Verified 09/20/21 07:59) - Review of Systems ROS: No change since H&P - Vital Signs and I&O's Vital Signs: Temperature 98.1 F Pulse Rate [Bilateral Radial] 105 Pulse Rate 80 Respiratory Rate 22 Blood Pressure [Left Arm] 163/76 Blood Pressure 132/70 O2 Sat by Pulse Oximetry 95 Intake and Output: Intake & Output 09/19/21 09/20/21 09/21/21 09/22/21 11:59 11:59 11:59 11:59 Intake Total 2710 / 2710 2760 / 2760 Balance 2710 / 2710 2760 / 2760 - Physical Exam Oriented: Person, Place Eyes: Normal Ear: Normal Nose: Normal Throat: Normal Cardiovascular: Normal : Normal Auscultation: Bowel Sounds: Normal Palpation: Normal Tenderness: Normal Skin: Normal Musculoskeletal: Normal Psychiatric: Normal Mood Description: Flat Affect: Flat Speech Pattern: Unclear - Laboratory and Diagnostics Result Diagrams: 09/22/21 05:00 09/22/21 05:00 Labs: 09/20/21 09:05 Blood Blood Culture - Preliminary 09/20/21 08:39 Blood Blood Culture - Preliminary Laboratory WBC 17.5 X10^3/uL (3.6-10.0) H 09/22/21 05:00 RBC 3.09 X10^6/uL (4.7-6.0) L 09/22/21 05:00 Hgb 9.2 g/dL (13.5-18.0) L 09/22/21 05:00 Hct 27.1 % (42.0-54.0) L 09/22/21 05:00 MCV 87.6 fL (80.0-100.0) 09/22/21 05:00 MCH 29.7 pg (27.0-34.0) 09/22/21 05:00 MCHC 33.9 g/dL (33.0-35.0) 09/22/21 05:00 RDW 13.8 % (11.6-16.5) 09/22/21 05:00 Plt Count 288 X10^3/uL (150.0-450.0) 09/22/21 05:00 Plt Count Comment Adequate (ADEQUATE) 09/21/21 04:20 MPV 8.7 fL (7.4-11.0) 09/22/21 05:00 Neut % (Auto) 81.7 % (42.0-75.0) H 09/22/21 05:00 Lymph % (Auto) 9.4 % (21.0-51.0) L 09/22/21 05:00 [place] % (Auto) 7.8 % (0.0-13.0) 09/22/21 05:00 Eos % (Auto) 0.7 % (0.9-2.9) L 09/22/21 05:00 Baso % (Auto) 0.4 % (0.2-1.0) 09/22/21 05:00 Neut # (Auto) 14.3 x10^3/uL (2.2-4.8) H 09/22/21 05:00 Lymph # (Auto) 1.6 X10^3/uL (1.3-2.9) 09/22/21 05:00 [place] # (Auto) 1.4 x10^3/uL (0.3-0.8) H 09/22/21 05:00 Eos # (Auto) 0.1 x10^3/uL (0.0-0.2) 09/22/21 05:00 Baso # (Auto) 0.1 X10^3/uL (0.0-0.1) 09/22/21 05:00 Absolute Nucleated RBC 0.0 /100WBC 09/22/21 05:00 Total Counted 100 09/21/21 04:20 Neutrophils % (Manual) 76 % (39-76) 09/21/21 04:20 Band Neutrophils % 7 % (0-10) 09/21/21 04:20 Lymphocytes % (Manual) 14 % (13-43) 09/21/21 04:20 Monocytes % (Manual) 3 % (4-9) L 09/21/21 04:20 Plt Morphology Comment Normal (NORMAL) 09/21/21 04:20 RBC Morphology Normal (NORMAL) 09/21/21 04:20 D-Dimer 3.07 ug/ml (0.0-0.57) H* 09/21/21 04:20 Sample Site Lrad 09/22/21 05:58 ABG pH 7.500 (7.35-7.45) H 09/22/21 05:58 ABG pCO2 37.0 mmHg (35.0-45.0) 09/22/21 05:58 ABG pO2 57.0 mmHg (80.0-100.0) L 09/22/21 05:58 ABG HCO3 28.9 mmol/L (22-26) H 09/22/21 05:58 ABG O2 Saturation 92.0 % (90-100) 09/22/21 05:58 ABG Base Excess 5.5 mmol/L (-2.0-2.0) H 09/22/21 05:58 Dwight Test Pos 09/22/21 05:58 A-a Gradient 46.0 mmHg 09/22/21 05:58 FiO2 21.0 09/22/21 05:58 Blood Gas Comments Eladio abg well-mtf 09/22/21 05:58 Sodium 138 mmol/L (136-145) 09/22/21 05:00 Corrected Sodium TNP 09/22/21 05:00 Potassium 4.2 mmol/L (3.5-5.1) 09/22/21 05:00 Chloride 105 mmol/L (98-107) 09/22/21 05:00 Carbon Dioxide 24.8 mmol/L (21-32) 09/22/21 05:00 BUN 22 mg/dL (7-18) H 09/22/21 05:00 Creatinine 1.18 mg/dL (0.70-1.30) 09/22/21 05:00 Est GFR (MDRD) Af Amer > 60 (>60) 09/22/21 05:00 Est GFR (MDRD) Non-Af > 60 (>60) 09/22/21 05:00 Glucose 93 mg/dL (65-99) 09/22/21 05:00 POC Glucose (mg/dL) 168 mg/dL (65-99) H 09/22/21 11:13 Lactic Acid 0.6 mmol/L (0.4-2.0) 09/22/21 05:00 Calcium 8.0 mg/dL (8.5-10.1) L 09/22/21 05:00 Corrected Calcium 9.5 mg/dL (8.5-10.1) 09/22/21 05:00 Total Bilirubin 0.30 mg/dL (0.2-1.0) 09/22/21 05:00 AST 15 Units/L (15-37) 09/22/21 05:00 ALT 13 Units/L (12-78) 09/22/21 05:00 Alkaline Phosphatase 86 Units/L (46-116) 09/22/21 05:00 Creatine Kinase 84 Units/L (39-308) 09/21/21 04:20 CK-MB (CK-2) 3.2 ng/mL (0-4.0) 09/21/21 04:20 CK/CKMB % Calc 3.8 % (<4) 09/21/21 04:20 Troponin I High Sens 8.1 ng/L (4.0-60.0) 09/22/21 05:00 B-Natriuretic Peptide 451 pg/mL (0-79) H 09/22/21 05:00 Total Protein 5.4 g/dL (6.4-8.2) L 09/22/21 05:00 Albumin 2.1 g/dL (3.4-5.0) L 09/22/21 05:00 Globulin 3.3 g/dL (2.5-4.5) 09/22/21 05:00 Albumin/Globulin Ratio 0.6 Ratio (1.1-2.1) L 09/22/21 05:00 SARS-CoV-2 (PCR) Negative (NEGATIVE) 09/20/21 08:03 Influenza Type A (PCR) Negative (NEGATIVE) 09/20/21 08:03 Influenza Type B (PCR) Negative (NEGATIVE) 09/20/21 08:03 RSV (PCR) Negative (NEGATIVE) 09/20/21 08:03 - Plan (1) Pneumonia Status: Acute Qualifiers: Pneumonia type: due to unspecified organism Laterality: right Lung location: unspecified part of lung Qualified Code(s): J18.9 - Pneumonia, unspecified organism Plan: SUPPLEMENTAL OXYGEN, NORMAL SALINE AT 125ML/HR, LEVAQUIN 500MG IV DAILY, ZOSYN 3.375G IV TID, DUONEBS Q4H, VSL #3 2 CAPS DAILY, HUMULIN R SLIDING SCALE, OTBS ACHS, AND HIS HOME MEDICATIONS WERE RESUMED. (2) Leukocytosis Status: Acute Qualifiers: Leukocytosis type: unspecified Qualified Code(s): D72.829 - Elevated white blood cell count, unspecified (3) Hypoxia Status: Acute (4) Lactic acidosis Status: Acute (5) Dementia Status: Chronic Qualifiers: Dementia type: unspecified type Dementia behavioral disturbance: without behavioral disturbance Qualified Code(s): F03.90 - Unspecified dementia without behavioral disturbance (6) Diabetes mellitus Status: Chronic Qualifiers: Diabetes mellitus type: type 2 Diabetes mellitus alf insulin use: with alf use Diabetes mellitus complication status: with hyperglycemia Qualified Code(s): E11.65 - Type 2 diabetes mellitus with hyperglycemia; Z79.4 - [facility] (current) use of insulin (7) CAD (coronary artery disease) Status: Chronic Qualifiers: Coronary Disease-Associated Artery/Lesion type: [place] artery [place] vs. transplanted heart: [place] heart Associated angina: with unspecified form of angina Qualified Code(s): I25.119 - Atherosclerotic heart disease of [place] coronary artery with unspecified angina pectoris
--- NOTE | 2021-09-22 11:48 | PCM.PROG ---
Progress Note - Progress Note for Day of Date of Exam: 09/22/21 - Subjective Subjective: WAS ADMITTED INPATIENT STATUS FOR TREATMENT OF RIGHT SIDED PNEUMONIA, LEUKOCYTOSIS, LACTIC ACIDOSIS. HE IS A RESIDENT OF [facility]. HE HAS A HX OF DEMENTIA, DM II, CAD. TODAY, HE IS ALERT, SITTING UP IN BED ON MORNING ROUNDS. HE AKNOWLEDGES OUR PRESENCE AND IS ABLE TO FOLLOW COMMANDS. ON EXAMINATION, HEART IS REGULAR IN RATE AND RHYTHM. BILATERAL LUNGS NOTED WITH RHONCHI THROUGHOUT. ABDOMEN IS ROUND, SOFT, AND NON-TENDER WITH NORMAL BOWEL SOUNDS NOTED IN ALL QUADRANTS. NO UPPER OR LOWER EXTREMITY EDEMA NOTED. HE IS CURRENTLY ON ROOM AIR. SATURATIONS HAVE BEEN IN THE 90s THROUGHOUT THE NIGHT. NO OVERNIGHT EVENTS. HIS VITALS THIS MORNING ARE: 98.7-85-26-96%-133/76. LABS WERE OBTAINED. WBC DECREASED TO 17.5, RBC 3.09, HGB 9.2, HCT 27.1, SODIUM 138, POTASSIUM 4.2, BUN 22, CREATININE 1.18, GLUCOSE 93, LACTIC ACID 0.6, CALCIUM 8.0, BNP 451, TOTAL PROTEIN 5.4, ALBUMIN 2.1. ABG REVEALED: PH 7.550, PC02 37, P02 57, HC03 28.9, 02 SAT 92, BASE EXCESS 5.5, A-A GRADIENT 46, FI02 21.0. BLOOD CULTURE ARE PENDING. HE HAS BEEN UNABLE TO PRODUCE A SPUTUM YET. CHEST CTA OBTAINED THIS MORNING AND REVEALED: Patient is rotated slightly to the left. Heart is enlarged. No congestive heart failure is noted. Perihilar right upper and right lower lobe infiltrates are unchanged. Left lung appears clear. No pleural effusion or pneumothorax identified. Bony thorax is unremarkable. HE IS CURRENTLY RECEIVING NORMAL SALINE AT 125ML/HR, ZOSYN 3.375G IV TID, LEVAQUIN 500MG IV DAILY, DUONEBS Q4H, VSL #3 2 CAPS DAILY, HUMULIN R SLIDING SCALE, OTBS ACHS, AND HIS HOME MEDICATIONS WERE RESUMED. OTHERWISE, WE WILL CONTINUE WITH CURRENT PLAN OF CARE TODAY AND ADD ALBUMIN 25% IV DAILY. OTHERWISE, WE PLAN TO FOLLOW-UP WITH AM LABS AND CHEST XRAY AND CONTINUE TO MONITOR. TIME SPENT ON CLINICAL ASSESSMENT, REVIEWING LABS AND IMAGING, DECISION MAKING, AND DOCUMENTATION GREATER THAN 45 MINUTES. - Past Medical Family Social History Past Med/Fam/Surg Hx: No changes since H&P Allergies: Allergies No Known Drug Allergies Allergy (Verified 09/20/21 07:59) - Review of Systems ROS: No change since H&P - Vital Signs and I&O's Vital Signs: Temperature 98.1 F Pulse Rate [Bilateral Radial] 105 Pulse Rate 80 Respiratory Rate 22 Blood Pressure [Left Arm] 163/76 Blood Pressure 132/70 O2 Sat by Pulse Oximetry 95 Intake and Output: Intake & Output 09/19/21 09/20/21 09/21/21 09/22/21 11:59 11:59 11:59 11:59 Intake Total 2710 / 2710 2760 / 2760 Balance 2710 / 2710 2760 / 2760 - Physical Exam Oriented: Person, Place Eyes: Normal Ear: Normal Nose: Normal Throat: Normal Respiratory: Generalized, Rhonchi Cardiovascular: Normal : Normal Auscultation: Bowel Sounds: Normal Palpation: Normal Tenderness: Normal Skin: Normal Musculoskeletal: Normal Psychiatric: Normal Mood Description: Flat Affect: Flat Speech Pattern: Unclear - Laboratory and Diagnostics Result Diagrams: 09/22/21 05:00 09/22/21 05:00 Labs: 09/20/21 09:05 Blood Blood Culture - Preliminary 09/20/21 08:39 Blood Blood Culture - Preliminary Laboratory WBC 17.5 X10^3/uL (3.6-10.0) H 09/22/21 05:00 RBC 3.09 X10^6/uL (4.7-6.0) L 09/22/21 05:00 Hgb 9.2 g/dL (13.5-18.0) L 09/22/21 05:00 Hct 27.1 % (42.0-54.0) L 09/22/21 05:00 MCV 87.6 fL (80.0-100.0) 09/22/21 05:00 MCH 29.7 pg (27.0-34.0) 09/22/21 05:00 MCHC 33.9 g/dL (33.0-35.0) 09/22/21 05:00 RDW 13.8 % (11.6-16.5) 09/22/21 05:00 Plt Count 288 X10^3/uL (150.0-450.0) 09/22/21 05:00 Plt Count Comment Adequate (ADEQUATE) 09/21/21 04:20 MPV 8.7 fL (7.4-11.0) 09/22/21 05:00 Neut % (Auto) 81.7 % (42.0-75.0) H 09/22/21 05:00 Lymph % (Auto) 9.4 % (21.0-51.0) L 09/22/21 05:00 [place] % (Auto) 7.8 % (0.0-13.0) 09/22/21 05:00 Eos % (Auto) 0.7 % (0.9-2.9) L 09/22/21 05:00 Baso % (Auto) 0.4 % (0.2-1.0) 09/22/21 05:00 Neut # (Auto) 14.3 x10^3/uL (2.2-4.8) H 09/22/21 05:00 Lymph # (Auto) 1.6 X10^3/uL (1.3-2.9) 09/22/21 05:00 [place] # (Auto) 1.4 x10^3/uL (0.3-0.8) H 09/22/21 05:00 Eos # (Auto) 0.1 x10^3/uL (0.0-0.2) 09/22/21 05:00 Baso # (Auto) 0.1 X10^3/uL (0.0-0.1) 09/22/21 05:00 Absolute Nucleated RBC 0.0 /100WBC 09/22/21 05:00 Total Counted 100 09/21/21 04:20 Neutrophils % (Manual) 76 % (39-76) 09/21/21 04:20 Band Neutrophils % 7 % (0-10) 09/21/21 04:20 Lymphocytes % (Manual) 14 % (13-43) 09/21/21 04:20 Monocytes % (Manual) 3 % (4-9) L 09/21/21 04:20 Plt Morphology Comment Normal (NORMAL) 09/21/21 04:20 RBC Morphology Normal (NORMAL) 09/21/21 04:20 D-Dimer 3.07 ug/ml (0.0-0.57) H* 09/21/21 04:20 Sample Site Lrad 09/22/21 05:58 ABG pH 7.500 (7.35-7.45) H 09/22/21 05:58 ABG pCO2 37.0 mmHg (35.0-45.0) 09/22/21 05:58 ABG pO2 57.0 mmHg (80.0-100.0) L 09/22/21 05:58 ABG HCO3 28.9 mmol/L (22-26) H 09/22/21 05:58 ABG O2 Saturation 92.0 % (90-100) 09/22/21 05:58 ABG Base Excess 5.5 mmol/L (-2.0-2.0) H 09/22/21 05:58 Dwight Test Pos 09/22/21 05:58 A-a Gradient 46.0 mmHg 09/22/21 05:58 FiO2 21.0 09/22/21 05:58 Blood Gas Comments Eladio abg well-mtf 09/22/21 05:58 Sodium 138 mmol/L (136-145) 09/22/21 05:00 Corrected Sodium TNP 09/22/21 05:00 Potassium 4.2 mmol/L (3.5-5.1) 09/22/21 05:00 Chloride 105 mmol/L (98-107) 09/22/21 05:00 Carbon Dioxide 24.8 mmol/L (21-32) 09/22/21 05:00 BUN 22 mg/dL (7-18) H 09/22/21 05:00 Creatinine 1.18 mg/dL (0.70-1.30) 09/22/21 05:00 Est GFR (MDRD) Af Amer > 60 (>60) 09/22/21 05:00 Est GFR (MDRD) Non-Af > 60 (>60) 09/22/21 05:00 Glucose 93 mg/dL (65-99) 09/22/21 05:00 POC Glucose (mg/dL) 168 mg/dL (65-99) H 09/22/21 11:13 Lactic Acid 0.6 mmol/L (0.4-2.0) 09/22/21 05:00 Calcium 8.0 mg/dL (8.5-10.1) L 09/22/21 05:00 Corrected Calcium 9.5 mg/dL (8.5-10.1) 09/22/21 05:00 Total Bilirubin 0.30 mg/dL (0.2-1.0) 09/22/21 05:00 AST 15 Units/L (15-37) 09/22/21 05:00 ALT 13 Units/L (12-78) 09/22/21 05:00 Alkaline Phosphatase 86 Units/L (46-116) 09/22/21 05:00 Creatine Kinase 84 Units/L (39-308) 09/21/21 04:20 CK-MB (CK-2) 3.2 ng/mL (0-4.0) 09/21/21 04:20 CK/CKMB % Calc 3.8 % (<4) 09/21/21 04:20 Troponin I High Sens 8.1 ng/L (4.0-60.0) 09/22/21 05:00 B-Natriuretic Peptide 451 pg/mL (0-79) H 09/22/21 05:00 Total Protein 5.4 g/dL (6.4-8.2) L 09/22/21 05:00 Albumin 2.1 g/dL (3.4-5.0) L 09/22/21 05:00 Globulin 3.3 g/dL (2.5-4.5) 09/22/21 05:00 Albumin/Globulin Ratio 0.6 Ratio (1.1-2.1) L 09/22/21 05:00 SARS-CoV-2 (PCR) Negative (NEGATIVE) 09/20/21 08:03 Influenza Type A (PCR) Negative (NEGATIVE) 09/20/21 08:03 Influenza Type B (PCR) Negative (NEGATIVE) 09/20/21 08:03 RSV (PCR) Negative (NEGATIVE) 09/20/21 08:03 - Plan (1) Pneumonia Status: Acute Qualifiers: Pneumonia type: due to unspecified organism Laterality: right Lung location: unspecified part of lung Qualified Code(s): J18.9 - Pneumonia, unspecified organism Plan: SUPPLEMENTAL OXYGEN, NORMAL SALINE AT 125ML/HR, ALBUMIN 25% IV DAILY, LEVAQUIN 500MG IV DAILY, ZOSYN 3.375G IV TID, DUONEBS Q4H, VSL #3 2 CAPS DAILY, HUMULIN R SLIDING SCALE, OTBS ACHS, AND HIS HOME MEDICATIONS WERE RESUMED. 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 transplanted heart: [place] heart Associated angina: with unspecified form of angina Qualified Code(s): I25.119 - Atherosclerotic heart disease of [place] coronary artery with unspecified angina pectoris
[2021-09-22] MEDS: ALBUMIN HUMAN 25%- 100 ML 100 ML IV SCH (12:55)
[2021-09-22] MEDS: SNACK - Diabetic Appropriate PO SCH (20:32)
[2021-09-22] MEDS: ARICEPT TAB 10 MG PO SCH (20:32)
[2021-09-23] MEDS: DUONEB 0.5 MG/3 MG (3 mL) NEB SCH ×6 (00:31→21:22)
[2021-09-23] MEDS: ZOSYN VIAL 3.375 GRAMS 3.375 G in NS 100 ML IV 100 ML IV SCH ×3 (05:08→21:05)
[2021-09-23] MEDS: NS 1,000 ML IV 1,000 ML IV SCH ×3 (05:08→17:25)
[2021-09-23 06:15] LABS: BASOPHILS # (AUTO) 0.1 X10^3/uL (0.0-0.1); BASOPHILS % (AUTO) 0.7 % (0.2-1.0); EOSINOPHILS # (AUTO) 0.2 x10^3/uL (0.0-0.2); HEMATOCRIT 27.3 % (42.0-54.0); HEMOGLOBIN 9.3 g/dL (13.5-18.0); LYMPHOCYTES # (AUTO) 1.4 X10^3/uL (1.3-2.9); LYMPHOCYTES % (AUTO) 12.6 % (21.0-51.0); MEAN CORPUSCULAR HEMOGLOBIN 29.7 pg (27.0-34.0); MEAN CORPUSCULAR HGB CONC 34.3 g/dL (33.0-35.0); MEAN CORPUSCULAR VOLUME 86.6 fL (80.0-100.0); MONOCYTES # (AUTO) 0.9 x10^3/uL (0.3-0.8); MONOCYTES % (AUTO) 8.1 % (0.0-13.0); NEUTROPHILS # (AUTO) 8.7 x10^3/uL (2.2-4.8); NEUTROPHILS % (AUTO) 76.6 % (42.0-75.0); RED BLOOD COUNT 3.15 X10^6/uL (4.7-6.0); RED CELL DISTRIBUTION WIDTH 13.2 % (11.6-16.5); WHITE BLOOD COUNT 11.4 X10^3/uL (3.6-10.0)
[2021-09-23 06:31] LABS: ALANINE AMINOTRANSFERASE 11 Units/L (12-78); ALBUMIN 2.4 g/dL (3.4-5.0); ALKALINE PHOSPHATASE 90 Units/L (46-116); ASPARTATE AMINO TRANSFERASE 11 Units/L (15-37); BLOOD UREA NITROGEN 13 mg/dL (7-18); CALCIUM 8.2 mg/dL (8.5-10.1); CARBON DIOXIDE 25.4 mmol/L (21-32); CHLORIDE 102 mmol/L (98-107); COR CA(FOR HYPOALB) 9.5 mg/dL (8.5-10.1); CREATININE 1.15 mg/dL (0.70-1.30); SODIUM 135 mmol/L (136-145); TOTAL PROTEIN 5.5 g/dL (6.4-8.2); eGFR NON BLACK RACES > 60 (>60)
--- NOTE | 2021-09-23 06:52 | RAD ---
HISTORYSOBSTUDYAP [id number]/06/2022FINDINGSStable cardiomegaly. No significant change in extent or distribution of asymmetric pulmonary infiltrates, right greater than left. No additional consolidation, complicating pneumothorax or developing pleural fluid demonstrated.IMPRESSIONNo change.Electronically signed by: SHERIDAN SUMMERS (September 23, 2021 06:51:03)
[2021-09-23] MEDS: VSL#3 PO SCH (08:31)
[2021-09-23] MEDS: VITAMIN B-12 PO SCH (08:31)
[2021-09-23] MEDS: PLAVIX PO SCH (08:32)
[2021-09-23] MEDS: MEGACE PO SCH ×2 (08:32→20:59)
[2021-09-23] MEDS: ALBUMIN HUMAN 25%- 100 ML 100 ML IV SCH (08:33)
[2021-09-23] MEDS: NAMENDA TAB 10 MG PO SCH (08:33)
[2021-09-23] MEDS: TAB-A-VITE PO SCH (08:34)
[2021-09-23] MEDS: K-DUR TAB 20 MEQ PO SCH (08:34)
[2021-09-23] MEDS: PROTONIX TAB 40 MG PO SCH (08:34)
[2021-09-23] MEDS: CELEXA PO SCH (08:34)
[2021-09-23] MEDS: LEVAQUIN PREMIX IV 500 MG 500 MG/100 ML BAG IV SCH (08:35)
[2021-09-23] MEDS: PULMICORT NEB TX 0.5 MG NEB SCH ×2 (08:36→21:22)
[2021-09-23] MEDS ORDERED: MICRO K EXTEN CAP 10 MEQ PO ONE (11:54)
[2021-09-23] MEDS ORDERED: LASIX IVP ONE (11:54)
[2021-09-23] MEDS: SNACK - Diabetic Appropriate PO SCH (20:26)
[2021-09-23] MEDS: ARICEPT TAB 10 MG PO SCH (20:59)
[2021-09-24] MEDS: DUONEB 0.5 MG/3 MG (3 mL) NEB SCH ×6 (00:21→21:02)
[2021-09-24] MEDS: NS 1,000 ML IV 1,000 ML IV SCH ×3 (01:04→16:44)
[2021-09-24 05:46] LABS: BASOPHILS # (AUTO) 0.1 X10^3/uL (0.0-0.1); BASOPHILS % (AUTO) 0.7 % (0.2-1.0); EOSINOPHILS # (AUTO) 0.3 x10^3/uL (0.0-0.2); EOSINOPHILS % (AUTO) 3.4 % (0.9-2.9); LYMPHOCYTES # (AUTO) 1.6 X10^3/uL (1.3-2.9); LYMPHOCYTES % (AUTO) 16.7 % (21.0-51.0); MEAN CORPUSCULAR HEMOGLOBIN 29.6 pg (27.0-34.0); MEAN CORPUSCULAR HGB CONC 34.3 g/dL (33.0-35.0); MEAN CORPUSCULAR VOLUME 86.3 fL (80.0-100.0); MEAN PLATELET VOLUME 9.2 fL (7.4-11.0); MONOCYTES # (AUTO) 1.2 x10^3/uL (0.3-0.8); MONOCYTES % (AUTO) 12.8 % (0.0-13.0); NEUTROPHILS # (AUTO) 6.2 x10^3/uL (2.2-4.8); NEUTROPHILS % (AUTO) 66.4 % (42.0-75.0); RED BLOOD COUNT 4.06 X10^6/uL (4.7-6.0); RED CELL DISTRIBUTION WIDTH 13.2 % (11.6-16.5); WHITE BLOOD COUNT 9.3 X10^3/uL (3.6-10.0)
[2021-09-24 05:54] LABS: ALANINE AMINOTRANSFERASE 12 Units/L (12-78); ALBUMIN 3.1 g/dL (3.4-5.0); ALKALINE PHOSPHATASE 113 Units/L (46-116); ASPARTATE AMINO TRANSFERASE 13 Units/L (15-37); BLOOD UREA NITROGEN 12 mg/dL (7-18); CALCIUM 9.1 mg/dL (8.5-10.1); CARBON DIOXIDE 26.8 mmol/L (21-32); CHLORIDE 100 mmol/L (98-107); COR CA(FOR HYPOALB) 9.8 mg/dL (8.5-10.1); CREATININE 1.37 mg/dL (0.70-1.30); SODIUM 137 mmol/L (136-145); eGFR NON BLACK RACES 54 (>60)
[2021-09-24] MEDS: ZOSYN VIAL 3.375 GRAMS 3.375 G in NS 100 ML IV 100 ML IV SCH ×3 (05:56→21:02)
--- NOTE | 2021-09-24 07:01 | RAD ---
HISTORYSOBSTUDYPortable AP [id number]/07/2022FINDINGSHeart size similar and stable. Persistent scattered and diffuse pulmonary infiltrates, essentially unchanged in the left lung but improved on the right. No new areas of involvement demonstrated. The pleural surfaces remain well defined.IMPRESSIONInterval improvement in the right-sided pneumonia; no change otherwise.Electronically signed by: SHERIDAN SUMMERS (September 24, 2021 07:00:12)
[2021-09-24] MEDS ORDERED: GLUCOPHAGE ONE (07:44)
[2021-09-24] MEDS: ALBUMIN HUMAN 25%- 100 ML 100 ML IV SCH (08:07)
[2021-09-24] MEDS: K-DUR TAB 20 MEQ PO SCH (08:08)
[2021-09-24] MEDS: GLUCOPHAGE PO SCH (08:08)
[2021-09-24] MEDS: CELEXA PO SCH (08:08)
[2021-09-24] MEDS: NAMENDA TAB 10 MG PO SCH (08:09)
[2021-09-24] MEDS: PLAVIX PO SCH (08:09)
[2021-09-24] MEDS: LEVAQUIN PREMIX IV 500 MG 500 MG/100 ML BAG IV SCH (08:09)
[2021-09-24] MEDS: MEGACE PO SCH ×2 (08:09→20:08)
[2021-09-24] MEDS: TAB-A-VITE PO SCH (08:10)
[2021-09-24] MEDS: VSL#3 PO SCH (08:10)
[2021-09-24] MEDS: VITAMIN B-12 PO SCH (08:10)
[2021-09-24] MEDS: PROTONIX TAB 40 MG PO SCH (08:10)
[2021-09-24] MEDS: PULMICORT NEB TX 0.5 MG NEB SCH ×2 (08:38→21:01)
[2021-09-24] MEDS ORDERED: CATAPRES TAB 0.1 MG PO ONE (18:39)
[2021-09-24] MEDS ORDERED: APRESOLINE INJ 20 MG VIAL IVP ONE (18:39)
[2021-09-24] MEDS: ARICEPT TAB 10 MG PO SCH (20:07)
[2021-09-24] MEDS: SNACK - Diabetic Appropriate PO SCH (20:07)
[2021-09-24] MEDS: ZOFRAN INJ 4 MG VIAL IVP PRN (20:08)
[2021-09-24] MEDS ORDERED: VISTARIL PO ONE (21:20)
[2021-09-24] MEDS: VISTARIL PO PRN (21:39)
[2021-09-25] MEDS: DUONEB 0.5 MG/3 MG (3 mL) NEB SCH ×6 (00:15→20:02)
[2021-09-25] MEDS: NS 1,000 ML IV 1,000 ML IV SCH ×3 (00:37→16:07)
[2021-09-25] MEDS: VISTARIL PO PRN ×2 (04:39→20:30)
[2021-09-25 05:06] LABS: BASOPHILS # (AUTO) 0.1 X10^3/uL (0.0-0.1); BASOPHILS % (AUTO) 0.6 % (0.2-1.0); EOSINOPHILS # (AUTO) 0.1 x10^3/uL (0.0-0.2); EOSINOPHILS % (AUTO) 0.6 % (0.9-2.9); HEMATOCRIT 34.9 % (42.0-54.0); HEMOGLOBIN 11.8 g/dL (13.5-18.0); LYMPHOCYTES # (AUTO) 1.3 X10^3/uL (1.3-2.9); LYMPHOCYTES % (AUTO) 9.6 % (21.0-51.0); MEAN CORPUSCULAR HEMOGLOBIN 29.1 pg (27.0-34.0); MEAN CORPUSCULAR HGB CONC 33.7 g/dL (33.0-35.0); MEAN CORPUSCULAR VOLUME 86.3 fL (80.0-100.0); MONOCYTES # (AUTO) 1.7 x10^3/uL (0.3-0.8); MONOCYTES % (AUTO) 12.6 % (0.0-13.0); NEUTROPHILS # (AUTO) 10.3 x10^3/uL (2.2-4.8); NEUTROPHILS % (AUTO) 76.6 % (42.0-75.0); RED BLOOD COUNT 4.05 X10^6/uL (4.7-6.0); RED CELL DISTRIBUTION WIDTH 13.5 % (11.6-16.5); WHITE BLOOD COUNT 13.5 X10^3/uL (3.6-10.0)
[2021-09-25] MEDS: ZOSYN VIAL 3.375 GRAMS 3.375 G in NS 100 ML IV 100 ML IV SCH ×3 (05:20→21:39)
[2021-09-25 05:25] LABS: ALBUMIN 3.2 g/dL (3.4-5.0); CALCIUM 8.9 mg/dL (8.5-10.1); CARBON DIOXIDE 23.8 mmol/L (21-32); COR CA(FOR HYPOALB) 9.5 mg/dL (8.5-10.1); CREATININE 1.55 mg/dL (0.70-1.30); TOTAL PROTEIN 6.8 g/dL (6.4-8.2)
[2021-09-25] MEDS ORDERED: POTASSIUM CHLORIDE LIQ 20 MEQ UDC PO PRN (05:51)
[2021-09-25] MEDS ORDERED: KLOR-CON PO PRN (05:51)
[2021-09-25] MEDS ORDERED: MICRO K EXTEN CAP 10 MEQ PO PRN (05:51)
[2021-09-25] MEDS ORDERED: POTASSIUM CHL 60 MEQ/NS 0.45% 500 ML IV PRN (05:51)
[2021-09-25] MEDS ORDERED: K-DUR TAB 20 MEQ PO PRN (05:51)
[2021-09-25] MEDS ORDERED: POTASSIUM CHL 40 MEQ/NS 0.45% 500 ML IV PRN (05:51)
[2021-09-25] MEDS ORDERED: K-RIDER 10 MEQ/NS 100 ML 10 MEQ/100 ML BAG IV PRN (05:51)
--- NOTE | 2021-09-25 06:42 | RAD ---
HISTORYFollow-up lung infiltratesSTUDYChest AP [id number]/08/2022FINDINGSHear t size is unchanged. Terra are normal. There is continued improvement in the perihilar infiltrates on the right with only minimal infiltrate remaining. The left lung is also clear. No pleural effusions or pneumothorax identified. Bony thorax is unremarkable.IMPRESSIONSignificant improvement bilateral lung infiltrates with only some residual perihilar right lung infiltrate remainingElectronically signed by: MARKIE ZAFAR (September 25, 2021 06:40:59)
[2021-09-25] MEDS: MAGNESIUM SULFATE 1 GRAM/100 mL PREMIX 1 G/100 ML BAG IV PRN ×2 (07:05→11:15)
[2021-09-25] MEDS ORDERED: GLUCOPHAGE ONE (07:49)
[2021-09-25] MEDS: PULMICORT NEB TX 0.5 MG NEB SCH ×2 (08:35→20:02)
[2021-09-25] MEDS: ALBUMIN HUMAN 25%- 100 ML 100 ML IV SCH (08:39)
[2021-09-25] MEDS ORDERED: LASIX IVP ONE (08:40)
[2021-09-25] MEDS: GLUCOPHAGE PO SCH (08:53)
[2021-09-25] MEDS: K-DUR TAB 20 MEQ PO SCH (08:53)
[2021-09-25] MEDS: CELEXA PO SCH (08:53)
[2021-09-25] MEDS: MEGACE PO SCH ×2 (08:54→20:05)
[2021-09-25] MEDS: NAMENDA TAB 10 MG PO SCH (08:54)
[2021-09-25] MEDS: TAB-A-VITE PO SCH (08:55)
[2021-09-25] MEDS: PROTONIX TAB 40 MG PO SCH (08:55)
[2021-09-25] MEDS: PLAVIX PO SCH (08:55)
[2021-09-25] MEDS: VITAMIN B-12 PO SCH (08:56)
[2021-09-25] MEDS: VSL#3 PO SCH (08:56)
[2021-09-25] MEDS: LEVAQUIN PREMIX IV 500 MG 500 MG/100 ML BAG IV SCH (09:31)
[2021-09-25] MEDS: TOPROL XL PO SCH (11:15)
[2021-09-25] MEDS: SNACK - Diabetic Appropriate PO SCH (20:05)
[2021-09-25] MEDS: ARICEPT TAB 10 MG PO SCH (20:05)
[2021-09-26] MEDS: DUONEB 0.5 MG/3 MG (3 mL) NEB SCH ×4 (00:33→13:10)
[2021-09-26] MEDS: NS 1,000 ML IV 1,000 ML IV SCH ×2 (04:07→09:28)
[2021-09-26 05:16] LABS: BASOPHILS # (AUTO) 0.1 X10^3/uL (0.0-0.1); BASOPHILS % (AUTO) 0.9 % (0.2-1.0); EOSINOPHILS # (AUTO) 0.8 x10^3/uL (0.0-0.2); EOSINOPHILS % (AUTO) 6.5 % (0.9-2.9); HEMATOCRIT 33.9 % (42.0-54.0); HEMOGLOBIN 11.3 g/dL (13.5-18.0); LYMPHOCYTES # (AUTO) 1.6 X10^3/uL (1.3-2.9); MEAN CORPUSCULAR HEMOGLOBIN 28.9 pg (27.0-34.0); MEAN CORPUSCULAR HGB CONC 33.3 g/dL (33.0-35.0); MEAN CORPUSCULAR VOLUME 86.9 fL (80.0-100.0); MEAN PLATELET VOLUME 8.9 fL (7.4-11.0); MONOCYTES # (AUTO) 1.6 x10^3/uL (0.3-0.8); MONOCYTES % (AUTO) 13.2 % (0.0-13.0); NEUTROPHILS # (AUTO) 8.3 x10^3/uL (2.2-4.8); NEUTROPHILS % (AUTO) 66.4 % (42.0-75.0); RED CELL DISTRIBUTION WIDTH 13.6 % (11.6-16.5); WHITE BLOOD COUNT 12.5 X10^3/uL (3.6-10.0)
[2021-09-26 05:20] LABS: BLOOD UREA NITROGEN 18 mg/dL (7-18); CALCIUM 8.9 mg/dL (8.5-10.1); CARBON DIOXIDE 23.3 mmol/L (21-32); CHLORIDE 102 mmol/L (98-107); COR NA(FOR HYPERGLY) 140 mmol/L (136-145); CREATININE 1.69 mg/dL (0.70-1.30); SODIUM 139 mmol/L (136-145); eGFR NON BLACK RACES 42 (>60)
[2021-09-26] MEDS: ZOSYN VIAL 3.375 GRAMS 3.375 G in NS 100 ML IV 100 ML IV SCH (05:32)
--- NOTE | 2021-09-26 07:22 | RAD ---
HISTORYSHORTNESS OF BREATHSTUDYCHEST, 1 [id number]/09/2022.TECHNIQUEAP chest, 2 images.FINDINGSRepeat image was obtained without patient's arm in the field of view. The cardiac silhouette is stably enlarged. Mediastinal contours appear normal. Similar appearance to prior study with likely minimal bilateral infiltrate remaining. No definite pleural effusion or pneumothorax.IMPRESSIONNo significant change.Electronically signed by: Ricardo Khoury (September 26, 2021 07:21:00)
[2021-09-26] MEDS ORDERED: GLUCOPHAGE ONE (08:03)
[2021-09-26] MEDS: ALBUMIN HUMAN 25%- 100 ML 100 ML IV SCH (08:14)
[2021-09-26] MEDS: GLUCOPHAGE PO SCH (08:16)
[2021-09-26] MEDS: K-DUR TAB 20 MEQ PO SCH (08:16)
[2021-09-26] MEDS: CELEXA PO SCH (08:16)
[2021-09-26] MEDS: PLAVIX PO SCH (08:17)
[2021-09-26] MEDS: NAMENDA TAB 10 MG PO SCH (08:17)
[2021-09-26] MEDS: MEGACE PO SCH (08:17)
[2021-09-26] MEDS: TOPROL XL PO SCH (08:18)
[2021-09-26] MEDS: VITAMIN B-12 PO SCH (08:18)
[2021-09-26] MEDS: PROTONIX TAB 40 MG PO SCH (08:18)
[2021-09-26] MEDS: TAB-A-VITE PO SCH (08:18)
[2021-09-26] MEDS: VSL#3 PO SCH (08:19)
[2021-09-26] MEDS: PULMICORT NEB TX 0.5 MG NEB SCH (08:48)
--- NOTE | 2021-09-26 09:19 | PCM.PROG ---
Progress Note - Progress Note for Day of Date of Exam: 09/25/21 - Subjective Subjective: IS CURRENTLY INPATIENT STATUS FOR TREATMENT OF RIGHT SIDED PNEUMONIA. HE IS A RESIDENT OF [facility]. HE HAS A HX OF DEMENTIA, DM II, CAD. TODAY, HE IS ALERT, SITTING UP IN BED ON MORNING ROUNDS. HE AKNOWLEDGES OUR PRESENCE AND IS ABLE TO FOLLOW COMMANDS. ON EXAMINATION, HEART IS REGULAR IN RATE AND RHYTHM. BILATERAL LUNGS NOTED WITH RHONCHI THROUGHOUT. ABDOMEN IS ROUND, SOFT, AND NON-TENDER WITH NORMAL BOWEL SOUNDS NOTED IN ALL QUADRANTS. NO UPPER OR LOWER EXTREMITY EDEMA NOTED. HE IS CURRENTLY ON ROOM AIR. SATURATIONS HAVE BEEN IN THE 90s THROUGHOUT THE NIGHT. NO OVERNIGHT EVENTS. HIS VITALS THIS MORNING ARE: 98.6-104-28-97%-160/78. LABS WERE OBTAINED. WBC 13.5, RBC 4.05, HGB 11.8, HCT 34.9, SODIUM 139, POTASSIUM 3.4, BUN 17, CREATININE 1.55, GLUCOSE 138, AST 12, ALT 10, ALK PHOS 106, BNP 806, ALBUMIN 3.2. BLOOD CULTURE ARE PENDING. HE HAS BEEN UNABLE TO PRODUCE A SPUTUM FOR CULTURE. CHEST XRAY OBTAINED THIS MORNING AND REVEALED: Significant improvement bilateral lung infiltrates with only some residual perihilar right lung infiltrate remaining. HE IS CURRENTLY RECEIVING NORMAL SALINE AT 50ML/HR, ZOSYN 3.375G IV TID, LEVAQUIN 500MG IV DAILY, ALBUMIN 25% IV DAILY, DUONEBS Q4H, VSL #3 2 CAPS DAILY, HUMULIN R SLIDING SCALE, OTBS ACHS, THE POTASSIUM AND MAGNESIUM PROTOCOLS, AND HIS HOME MEDICATIONS WERE RESUMED. TODAY, WE WILL ADMINISTER LASIX 40MG IV X 1 DOSE. OTHERWISE, WE PLAN TO FOLLOW-UP WITH AM LABS AND CHEST XRAY AND CONTINUE TO MONITOR. TIME SPENT ON CLINICAL ASSESSMENT, REVIEWING LABS AND IMAGING, DECISION MAKING, AND DOCUMENTATION GREATER THAN 45 MINUTES. - Past Medical Family Social History Past Med/Fam/Surg Hx: No changes since H&P Allergies: Allergies No Known Drug Allergies Allergy (Verified 09/20/21 07:59) - Review of Systems ROS: No change since H&P - Vital Signs and I&O's Vital Signs: Temperature 98.4 F Pulse Rate [Bilateral Radial] 105 Pulse Rate 93 Respiratory Rate 22 Blood Pressure [Left Arm] 142/75 Blood Pressure 157/92 O2 Sat by Pulse Oximetry 96 Intake and Output: Intake & Output 09/23/21 09/24/21 09/25/21 09/26/21 11:59 11:59 11:59 11:59 Intake Total 3591 / 3591 1406 / 1406 1960 2280 / 2280 Balance 3591 / 3591 1406 / 1406 1960 / 0 - Physical Exam Oriented: Person, Place Eyes: Normal Ear: Normal Nose: Normal Throat: Normal Respiratory: Generalized, Rhonchi Cardiovascular: Normal : Normal Auscultation: Bowel Sounds: Normal Palpation: Normal Tenderness: Normal Skin: Normal Musculoskeletal: Normal Psychiatric: Normal Mood Description: Flat Affect: Flat Speech Pattern: Clear, Appropriate - Laboratory and Diagnostics Result Diagrams: 09/26/21 04:15 09/26/21 04:15 Labs: 09/20/21 09:05 Blood Blood Culture - Final 09/20/21 08:39 Blood Blood Culture - Final Laboratory WBC 12.5 X10^3/uL (3.6-10.0) H 09/26/21 04:15 RBC 3.90 X10^6/uL (4.7-6.0) L 09/26/21 04:15 Hgb 11.3 g/dL (13.5-18.0) L 09/26/21 04:15 Hct 33.9 % (42.0-54.0) L 09/26/21 04:15 MCV 86.9 fL (80.0-100.0) 09/26/21 04:15 MCH 28.9 pg (27.0-34.0) 09/26/21 04:15 MCHC 33.3 g/dL (33.0-35.0) 09/26/21 04:15 RDW 13.6 % (11.6-16.5) 09/26/21 04:15 Plt Count 373 X10^3/uL (150.0-450.0) 09/26/21 04:15 Plt Count Comment Adequate (ADEQUATE) 09/21/21 04:20 MPV 8.9 fL (7.4-11.0) 09/26/21 04:15 Neut % (Auto) 66.4 % (42.0-75.0) 09/26/21 04:15 Lymph % (Auto) 13.0 % (21.0-51.0) L 09/26/21 04:15 [place] % (Auto) 13.2 % (0.0-13.0) H 09/26/21 04:15 Eos % (Auto) 6.5 % (0.9-2.9) H 09/26/21 04:15 Baso % (Auto) 0.9 % (0.2-1.0) 09/26/21 04:15 Neut # (Auto) 8.3 x10^3/uL (2.2-4.8) H 09/26/21 04:15 Lymph # (Auto) 1.6 X10^3/uL (1.3-2.9) 09/26/21 04:15 [place] # (Auto) 1.6 x10^3/uL (0.3-0.8) H 09/26/21 04:15 Eos # (Auto) 0.8 x10^3/uL (0.0-0.2) H 09/26/21 04:15 Baso # (Auto) 0.1 X10^3/uL (0.0-0.1) 09/26/21 04:15 Absolute Nucleated RBC 0.0 /100WBC 09/26/21 04:15 Total Counted 100 09/21/21 04:20 Neutrophils % (Manual) 76 % (39-76) 09/21/21 04:20 Band Neutrophils % 7 % (0-10) 09/21/21 04:20 Lymphocytes % (Manual) 14 % (13-43) 09/21/21 04:20 Monocytes % (Manual) 3 % (4-9) L 09/21/21 04:20 Plt Morphology Comment Normal (NORMAL) 09/21/21 04:20 RBC Morphology Normal (NORMAL) 09/21/21 04:20 D-Dimer 3.07 ug/ml (0.0-0.57) H* 09/21/21 04:20 Sample Site [place] 09/22/21 05:58 ABG pH 7.500 (7.35-7.45) H 09/22/21 05:58 ABG pCO2 37.0 mmHg (35.0-45.0) 09/22/21 05:58 ABG pO2 57.0 mmHg (80.0-100.0) L 09/22/21 05:58 ABG HCO3 28.9 mmol/L (22-26) H 09/22/21 05:58 ABG O2 Saturation 92.0 % (90-100) 09/22/21 05:58 ABG Base Excess 5.5 mmol/L (-2.0-2.0) H 09/22/21 05:58 Dwight Test Pos 09/22/21 05:58 A-a Gradient 46.0 mmHg 09/22/21 05:58 FiO2 21.0 09/22/21 05:58 Blood Gas Comments Eladio abg well-mtf 09/22/21 05:58 Sodium 139 mmol/L (136-145) 09/26/21 04:15 Corrected Sodium 140 mmol/L (136-145) 09/26/21 04:15 Potassium 3.4 mmol/L (3.5-5.1) L 09/26/21 04:15 Chloride 102 mmol/L (98-107) 09/26/21 04:15 Carbon Dioxide 23.3 mmol/L (21-32) 09/26/21 04:15 BUN 18 mg/dL (7-18) 09/26/21 04:15 Creatinine 1.69 mg/dL (0.70-1.30) H 09/26/21 04:15 Est GFR (MDRD) Af Amer 51 (>60) L 09/26/21 04:15 Est GFR (MDRD) Non-Af 42 (>60) L 09/26/21 04:15 Glucose 133 mg/dL (65-99) H 09/26/21 04:15 POC Glucose (mg/dL) 182 mg/dL (65-99) H 09/25/21 19:17 Lactic Acid 0.6 mmol/L (0.4-2.0) 09/22/21 05:00 Calcium 8.9 mg/dL (8.5-10.1) 09/26/21 04:15 Corrected Calcium 9.5 mg/dL (8.5-10.1) 09/25/21 04:20 Magnesium 2.0 mg/dL (1.7-2.9) 09/26/21 04:15 Total Bilirubin 0.70 mg/dL (0.2-1.0) 09/25/21 04:20 AST 12 Units/L (15-37) L 09/25/21 04:20 ALT 10 Units/L (12-78) L 09/25/21 04:20 Alkaline Phosphatase 106 Units/L (46-116) 09/25/21 04:20 Creatine Kinase 84 Units/L (39-308) 09/21/21 04:20 CK-MB (CK-2) 3.2 ng/mL (0-4.0) 09/21/21 04:20 CK/CKMB % Calc 3.8 % (<4) 09/21/21 04:20 Troponin I High Sens 8.1 ng/L (4.0-60.0) 09/22/21 05:00 B-Natriuretic Peptide 331 pg/mL (0-79) H 09/26/21 04:15 Total Protein 6.8 g/dL (6.4-8.2) 09/25/21 04:20 Albumin 3.2 g/dL (3.4-5.0) L 09/25/21 04:20 Globulin 3.6 g/dL (2.5-4.5) 09/25/21 04:20 Albumin/Globulin Ratio 0.9 Ratio (1.1-2.1) L 09/25/21 04:20 SARS-CoV-2 (PCR) Negative (NEGATIVE) 09/20/21 08:03 Influenza Type A (PCR) Negative (NEGATIVE) 09/20/21 08:03 Influenza Type B (PCR) Negative (NEGATIVE) 09/20/21 08:03 RSV (PCR) Negative (NEGATIVE) 09/20/21 08:03 - Plan (1) Pneumonia Status: Acute Qualifiers: Pneumonia type: due to unspecified organism Laterality: right Lung location: unspecified part of lung Qualified Code(s): J18.9 - Pneumonia, unspecified organism Plan: SUPPLEMENTAL OXYGEN, NORMAL SALINE AT 50ML/HR, ALBUMIN 25% IV DAILY, LEVAQUIN 500MG IV DAILY, ZOSYN 3.375G IV TID, DUONEBS Q4H, VSL #3 2 CAPS DAILY, HUMULIN R SLIDING SCALE, OTBS ACHS, AND HIS HOME MEDICATIONS WERE RESUMED. LASIX 40MG IV X 1 (2) Leukocytosis Status: Acute Qualifiers: Leukocytosis type: unspecified Qualified Code(s): D72.829 - Elevated white blood cell count, unspecified (3) Hypoxia Status: Acute (4) Lactic acidosis Status: Acute (5) Dementia Status: Chronic Qualifiers: Dementia type: unspecified type Dementia behavioral disturbance: without behavioral disturbance Qualified Code(s): F03.90 - Unspecified dementia without behavioral disturbance (6) Diabetes mellitus Status: Chronic Qualifiers: Diabetes mellitus type: type 2 Diabetes mellitus fpc insulin use: with intermission coordinator use Diabetes mellitus complication status: with hyperglycemia Qualified Code(s): E11.65 - Type 2 diabetes mellitus with hyperglycemia; Z79.4 - tank terminal gauger (current) use of insulin (7) CAD (coronary artery disease) Status: Chronic Qualifiers: Coronary Disease-Associated Artery/Lesion type: [place] artery [place] vs. transplanted heart: [place] heart Associated angina: with unspecified form of angina Qualified Code(s): I25.119 - Atherosclerotic heart disease of [place] coronary artery with unspecified angina pectoris
[2021-09-26] MEDS: LEVAQUIN PREMIX IV 500 MG 500 MG/100 ML BAG IV SCH (09:28)
[2021-09-26 13:23] VITALS: BP 150/89
[2021-09-26 21:19] LABS: ALANINE AMINOTRANSFERASE 11 Units/L (12-78); ALBUMIN 3.4 g/dL (3.4-5.0); ALKALINE PHOSPHATASE 95 Units/L (46-116); ASPARTATE AMINO TRANSFERASE 12 Units/L (15-37); TOTAL PROTEIN 6.6 g/dL (6.4-8.2)
== END 2021-09-26 13:35 | DRG 194 ==
LOC: ER 07:32 → ICU 09:24
PROVIDERS: ADMIT Internal Medicine; ATTEND Internal Medicine